=== PATIENT | female | born 1975 | race Caucasian/White ===

== ENCOUNTER 2017-08-14 13:24 | Emergency (ER) | payer BC, MEDICAID ==
[2017-08-14 13:31] VITALS: BP 119/77
[2017-08-14] MEDS ORDERED: LIDOCAINE TOPICAL 4% 50 ML BOTTLE MM STA (13:33)
--- NOTE | 2017-08-14 13:36 | ED Physician Documentation ---
History of Present Illness - Stated complaint Stated Complaint: R EAR PAIN - Chief complaint Chief Complaint: Heent - Additonal information Additional information: hx from pt hx ear infections recent congestion R ear pain few days worse today fever denies preg Review of Systems Constitutional: reports: Fever Ears: reports: Ear pain Nose: reports: Congestion : denies: Now EGA PD PAST MEDICAL HISTORY - Present Medications Home Medications: Ambulatory Orders Medication Instructions Recorded Confirmed Neomycin/Polymyx/Hc Otic Drops 4 drops OT QID #1 bottle 08/14/17 [Cortisporin Ear Susp] - Allergies Allergies/Adverse Reactions: Allergies Allergy/AdvReac Type Severity Reaction Status Date / Time hydrocodone Allergy Unknown Verified 08/14/17 13:31 PD ED PE NORMAL - Vitals Vital signs reviewed: Yes - HEENT HEENT: Moist mucous membranes, Pharynx benign. No: Ears normal (R AOE - swollen tender red canal, visualized TM dull lewis and retracted, posterior auricular adenopathy, no mastoid erythema swelling or TTP) - Neck Neck: Supple, no meningeal sign - Cardiac Cardiac: RRR - Respiratory Respiratory: No respiratory distress, Clear bilaterally Results - Vitals Vitals: Vital Signs - 24 hr 08/14/17 13:29 Temperature 36.4 C L Heart Rate 79 Respiratory 20 Rate Blood Pressure 119/77 O2 Saturation 100 Oxygen O2 Source Room air Departure - Departure Disposition: 01 Home, Self Care Clinical Impression: Otitis externa Qualifiers: Otitis externa type: unspecified type Chronicity: acute Laterality: right Qualified Code(s): H60.501 - Unspecified acute noninfective otitis externa, right ear Condition: Good Instructions: ED Otitis Externa Prescriptions: Neomycin/Polymyx/Hc Otic Drops [Cortisporin Ear Susp] 4 drops OT QID #1 bottle Comments: Motrin and tylenol for pain Follow up with your PMD for a recheck next week
[2017-08-14] MEDS ORDERED: LIDOCAINE TOPICAL 4% 50 ML BOTTLE ONE (13:43)
== END 2017-08-14 13:48 | disposition home or self-care (01) ==
LOC: ED 13:24
DX: H60.501 Unspecified acute noninfective otitis externa, right ear (principal)
CPT/HCPCS: 99283

== ENCOUNTER 2018-03-26 05:13 | Emergency (ER) | payer BC ==
[2018-03-26 05:24] VITALS: BP 120/88
[2018-03-26 05:40] LABS: BILIRUBIN,URINE NEGATIVE (NEGATIVE); GLUCOSE, URINE (UA) NEGATIVE (NEGATIVE); KETONES,URINE (UA) NEGATIVE (NEGATIVE); LEUKOCYTE ESTERASE, URINE MODERATE (NEGATIVE); NITRITE,URINE POSITIVE (NEGATIVE); OCCULT BLOOD,URINE MODERATE (NEGATIVE); PROTEIN,URINE 30 mg/dL (NEGATIVE); UROBILINOGEN,URINE 0.2 (NORMAL) E.U./dL (NORMAL)
[2018-03-26 05:42] LABS: CLARITY,URINE HAZY (CLEAR); HCG UR QUAL NEGATIVE
[2018-03-26 05:47] LABS: BACTERIA,URINE Moderate /HPF (None Seen); SQUAMOUS EPITHELIAL CELL,UR FEW Squamous (<= Few)
--- NOTE | 2018-03-26 05:50 | ED Physician Documentation ---
PD HPI FEMALE - Stated complaint Stated Complaint: FEMALE - Chief complaint Chief Complaint: UTI - History obtained from History obtained from: Patient - History of Present Illness Timing - onset: Yesterday Timing - details: Abrupt onset Pain level max: 4 Associated symptoms: Back pain, Pelvic pain, Dysuria, Urinary frequency. No: Fever Contributing factors: No: Similar symptoms before: Diagnosis (similar symptoms 3 weeks ago, dx. 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 - Present Medications Home Medications: Ambulatory Orders Medication Instructions Recorded Confirmed Ciprofloxacin HCl [Cipro] 500 mg PO BID #13 tablet 03/26/18 Phenazopyridine HCl [Pyridium] 200 mg PO TID 3 Days #9 tablet 03/26/18 - Allergies Allergies/Adverse Reactions: Allergies Allergy/AdvReac Type Severity Reaction Status Date / Time codeine Allergy Hives Verified 03/26/18 05:25 hydrocodone Allergy Unknown Verified 08/14/17 13:31 - Social History Does the pt smoke?: No Smoking Status: Never smoker Does the pt drink ETOH?: Yes Does the pt have substance abuse?: No - Immunizations Immunizations are current?: No Immunizations: TDAP >10years/unknown, Other immun current PD ED PE NORMAL - Vitals Vital signs reviewed: Yes - General General: Alert and oriented X 3, No acute distress, Well developed/nourished - Abdomen Abdomen: Soft, Non tender - Back Back: No CVA TTP - Derm Derm: No rash Results - Vitals Vitals: Oxygen O2 Source Room air - Labs Labs: Microbiology 03/26/18 05:30 Urine Culture - Preliminary Urine,Clean Catch Escherichia Coli Laboratory Tests 03/26/18 03/26/18 05:30 05:30 Urine Color YELLOW Urine Clarity HAZY Urine pH 6.0 Ur Specific [place] >=1.030 H >1.030 Urine Protein 30 H Urine Glucose (UA) NEGATIVE Urine Ketones NEGATIVE Urine Occult Blood MODERATE H Urine Nitrite POSITIVE H Urine Bilirubin NEGATIVE Urine Urobilinogen 0.2 (NORMAL) Ur Leukocyte Esterase MODERATE H Urine RBC 6-10 H Urine WBC >25 H Ur Squamous Epith Cells FEW Squamous Urine Bacteria Moderate H Ur Microscopic Review INDICATED Urine Culture Comments INDICATED Urine HCG, Qual NEGATIVE PD MEDICAL DECISION MAKING - ED course Complexity details: reviewed results, re-evaluated patient, considered differential, d/w patient - Sepsis Event Vital Signs: Oxygen O2 Source Room air Departure - Departure Disposition: 01 Home, Self Care Clinical Impression: Urinary tract infection Condition: Good Instructions: ED UTI Cystitis Female Prescriptions: Ciprofloxacin HCl [Cipro] 500 mg PO BID #13 tablet Phenazopyridine HCl [Pyridium] 200 mg PO TID 3 Days #9 tablet Forms: Activity restrictions Discharge Date/Time: 03/26/18 06:31
[2018-03-26] MEDS ORDERED: CIPROFLOXACIN 250 MG TABLET PO STA (06:18)
[2018-03-26] MEDS ORDERED: PHENAZOPYRIDINE 100 MG TABLET PO STA (06:19)
== END 2018-03-26 06:31 | disposition home or self-care (01) ==
LOC: ED 05:13
DX: N39.0 Urinary tract infection, site not specified (principal)
CPT/HCPCS: 81001; 81025; 87086; 87181; 99283; A9270; 81003

== ENCOUNTER 2019-11-14 21:50 | Emergency (ER) | payer BC, MEDICAID ==
[2019-11-14 21:56] VITALS: BP 123/85
[2019-11-14] MEDS ORDERED: MORPHINE 2 MG/ML CARPUJECT IM STA (22:20)
[2019-11-14] MEDS ORDERED: KETOROLAC 30 MG/ML VIAL IM STA (22:20)
--- NOTE | 2019-11-14 22:25 | ED Physician Documentation ---
History of Present Illness - Stated complaint Stated Complaint: BACK PX - Chief complaint Chief Complaint: Back Pain - History obtained from History obtained from: Patient - History of Present Illness Pain level max: 10 Pain level now: 10 Quality: tightness; dull pain Radiates to: thoracic mid back and right shoulder Improved by: rest Worsened by: movements - Additonal information Additional information: 44-year-old female with history of chronic back pain for over 16 years, who presented to the emergency department for evaluation because of acute on chronic low back pain for the last 3 days. Patient reported that he used to work for [employer] and she was lifting over 50 pounds of objects. On a regular basis and as a result, developed lower back pain. She currently works at [employer] and she does notCarry heavy objects at work. She denies any numbness or tingling to her lower extremities. She reports that her low back will seize up and the pain will radiate up to the mid back and to her right posterior shoulde r. She denies any fever or chills. She denies IV drug use. She denies saddle anesthesia. She denies urinary frequency, difficulty with urination or fecal incontinence. Review of Systems Constitutional: denies: Fever, Chills Eyes: denies: Photophobia, Discharge Ears: denies: Tinnitus/ringing Nose: denies: Rhinorrhea / runny nose Cardiac: denies: Chest pain / pressure Respiratory: denies: Dyspnea GI: denies: Abdominal Pain : denies: Dysuria, Frequency, Hesitancy, Unable to Void Skin: denies: Rash Musculoskeletal: reports: Back pain. 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 - Present Medications Home Medications: Ambulatory Orders Medication Instructions Recorded Confirmed Ciprofloxacin HCl [Cipro] 500 mg PO BID #13 tablet 03/26/18 Phenazopyridine HCl [Pyridium] 200 mg PO TID 3 Days #9 tablet 03/26/18 Cyclobenzaprine [Flexeril] 10 mg PO TID PRN #15 tablet 11/14/19 - Allergies Allergies/Adverse Reactions: Allergies Allergy/AdvReac Type Severity Reaction Status Date / Time codeine Allergy Hives Verified 11/14/19 21:56 hydrocodone Allergy Unknown Verified 11/14/19 21:56 - Social History Does the pt smoke?: No Smoking Status: Never smoker Does the pt drink ETOH?: Yes Does the pt have substance abuse?: No - Immunizations Immunizations are current?: No Immunizations: TDAP >10years/unknown, Other immun current PD ED PE NORMAL - Vitals Vital signs reviewed: Yes - General General: Alert and oriented X 3, No acute distress, Other (Uncomfortable with mom movements but no acute distress) - HEENT HEENT: Atraumatic, EOMI - Neck Neck: Supple, no meningeal sign - Cardiac Cardiac: RRR. No: No murmur - Respiratory Respiratory: No respiratory distress - Back Back: No CVA TTP, Other (Paralumbar tenderness to palpation. No step-off. 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 Patient remained neurologically intact. She was afebrile. She denies history of IV drug use. She denies symptoms of saddle anesthesia or sciatica. At this time, I do not suspect cauda equina, cord compression. There was no history of trauma to suggest an acute fracture. She was treated with IM Toradol and morphine with improvement of her pain. Patient was prescribed Flexeril for symptomatic relief. Outpatient follow-up with her primary care doctor in 3 to 5 days was recommended. Strict return instructions were given. She expressed verbal understanding. She was discharged in stable condition. Departure - Departure Disposition: 01 Home, Self Care Clinical Impression: Chronic low back pain without sciatica Condition: Stable Instructions: ED Back Care Tips, ED Neck Back Pain General Follow-Up: [facility] [Provider Group] - Within 1 week Prescriptions: Cyclobenzaprine [Flexeril] 10 mg PO TID PRN #15 tablet PRN Reason: Spasms Comments: PLEASE FOLLOW UP WITH A REGULAR DOCTOR IN 3-5 DAYS FOR YOUR ONGOING BACK PAIN. PLEASE RETURN TO THE EMERGENCY DEPARTMENT IF YOU EXPERIENCE URINARY OR FECAL INCONTINENCE OR DIFFICULTY WITH URINATION OR FEVER OF 100.4 OR ANY NEW OR CONCERNING SYMPTOMS. Discharge Date/Time: 11/14/19 22:44
== END 2019-11-14 22:44 | disposition home or self-care (01) ==
LOC: ED 21:50
DX: G89.29 Other chronic pain (principal); M54.5 Low back pain
CPT/HCPCS: 96372; 99283; 99285

== ENCOUNTER 2021-02-04 21:56 | Emergency (ER) | payer MEDICAID ==
[2021-02-04] MEDS ORDERED: CYCLOBENZAPRINE 10 MG TABLET PO STA (22:45)
[2021-02-04] MEDS ORDERED: KETOROLAC 60 MG/2 ML VIAL IM STA (22:45)
[2021-02-04] MEDS ORDERED: DEXAMETHASONE 10 MG/ML VIAL IM STA (22:45)
--- NOTE | 2021-02-04 22:53 | ED Physician Documentation ---
History of Present Illness - Stated complaint Stated Complaint: LOWER BACK PX, R LEG PX - Chief complaint Chief Complaint: Back Pain - History obtained from History obtained from: Patient - Additonal information Additional information: Patient comes emergency department chief complaint of spasming low back pain and bilateral buttock pain that shoots down right leg for the last 3 days. The patient has a history of prior back problems, and has been treated for back pain before. She denies a distinct injury, but states she has had to do some heavy lifting at work recently and thinks that this probably aggravated her back. Prior to her current job at [employer], patient works for [employer] for several years, and had to regularly lift 50 pounds or more throughout her work days. She states this seemed to really worsen her back issues. No distinct injury recently. No loss of bowel or bladder function. No numbness or tingling in her lower extremities. No weakness. No fever or chills. No other complaints at this time. Review of Systems Ten Systems: 10 systems reviewed and negative Constitutional: reports: Reviewed and negative Eyes: reports: Reviewed and negative Ears: reports: Reviewed and negative Nose: reports: Reviewed and negative Throat: reports: Reviewed and negative Cardiac: reports: Reviewed and negative Respiratory: reports: Reviewed and negative GI: reports: Reviewed and negative : reports: Reviewed and negative Skin: reports: Reviewed and negative Musculoskeletal: reports: Back pain, Extremity pain Neurologic: reports: Reviewed and negative Psychiatric: reports: Reviewed and negative Endocrine: reports: Reviewed and negative Immunocompromised: reports: Reviewed and negative PD PAST MEDICAL HISTORY - Past Medical History Cardiovascular: None Respiratory: None GI: None 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 NURSE: 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 : None Musculoskeletal: Chronic back pain Derm: None - Past Surgical History 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 - Present Medications Home Medications: Ambulatory Orders Medication Instructions Recorded Confirmed Acyclovir 400 mg PO 5XD PRN 02/04/21 02/04/21 Cyclobenzaprine [Flexeril] 10 mg PO TID PRN #20 tablet 02/04/21 predniSONE [Deltasone] 60 mg PO DAILY 5 Days #15 tablet 02/04/21 - Allergies Allergies/Adverse Reactions: Allergies Allergy/AdvReac Type Severity Reaction Status Date / Time codeine Allergy Hives Verified 02/04/21 22:04 hydrocodone Allergy Unknown Verified 02/04/21 22:04 - Social History Does the pt smoke?: No Smoking Status: Never smoker Does the pt drink ETOH?: Yes Does the pt have substance abuse?: No - Immunizations Immunizations are current?: No Immunizations: TDAP >10years/unknown, Other immun current PD ED PE NORMAL - Vitals Vital signs reviewed: Yes - General General: Alert and oriented X 3, No acute distress - HEENT HEENT: Atraumatic, PERRL - Neck Neck: Supple, no meningeal sign - Cardiac Cardiac: RRR, No murmur, Strong equal pulses - Respiratory Respiratory: No respiratory distress, Clear bilaterally - Abdomen Abdomen: Soft, Non tender, Non distended - Back Back: No spinal TTP, Other (Tenderness palpation across the inferior lumbar area bilaterally and into bilateral sacroiliac joint areas.) - Derm Derm: Normal color, Warm and dry, No rash - Extremities Extremities: No deformity, No edema, No calf tenderness / cord - Neuro Neuro: Alert and oriented X 3, 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 The patient was treated symptomatically in the emergency department with IM Toradol and Decadron, as well as a dose of Flexeril. She did state that Flexeril has worked before when she has had flareups of her back, and I did review her records which did not demonstrate frequent visits to the emergency department. The patient was given prescriptions for prednisone and for Flexeril, and I have advised patient that she may also use Tylenol and ibuprofen, as well as ice and heat, as needed. I have given her a work note for tomorrow. We have discussed follow-up and the usual indications for return. Departure - Departure Disposition: 01 Home, Self Care Clinical Impression: Back pain Qualifiers: Back pain location: low back pain Chronicity: acute Back pain laterality: bilateral Sciatica presence: with sciatica Sciatica laterality: sciatica of right side Qualified Code(s): M54.41 - Lumbago with sciatica, right side Condition: Stable Instructions: ED Spasm Back No Trauma, ED Sciatica Prescriptions: predniSONE [Deltasone] 60 mg PO DAILY 5 Days #15 tablet Cyclobenzaprine [Flexeril] 10 mg PO TID PRN #20 tablet PRN Reason: Spasms Comments: You have been given a sedating medication in the emergency department tonight. Please do not drive for the next 8 hours. Forms: Activity restrictions Discharge Date/Time: 02/04/21 23:14
[2021-02-04 23:14] VITALS: BP 128/64
== END 2021-02-04 23:14 | disposition home or self-care (01) ==
LOC: ED 21:56
DX: M54.41 Lumbago with sciatica, right side (principal)
CPT/HCPCS: 96372; 99283; 99284; A9270

== ENCOUNTER 2022-02-07 22:36 | Emergency (ER) | payer MEDICAID ==
[2022-02-07 23:27] LABS: BILIRUBIN,URINE NEGATIVE (NEGATIVE); GLUCOSE, URINE (UA) NEGATIVE (NEGATIVE); KETONES,URINE (UA) NEGATIVE (NEGATIVE); LEUKOCYTE ESTERASE, URINE SMALL (NEGATIVE); NITRITE,URINE NEGATIVE (NEGATIVE); OCCULT BLOOD,URINE MODERATE (NEGATIVE); PROTEIN,URINE TRACE mg/dL (NEGATIVE); UROBILINOGEN,URINE 0.2 (NORMAL) E.U./dL (NORMAL)
[2022-02-07] MEDS ORDERED: oxyCODONE 5 MG TABLET PO STA (23:29)
--- NOTE | 2022-02-07 23:29 | ED Physician Documentation ---
PD HPI ABD PAIN - Stated complaint Stated Complaint: ABD PX - Chief complaint Chief Complaint: Abd Pain - Additional information Additional information: Patient is 46-year-old female presenting to the emergency department with chief complaint of abdominal pain with associated dysuria and urinary frequency. Reports began having frequent urinations that has become subsequently more uncomfortable over the course of the day. Also reports that she has developed suprapubic discomfort. States that this happens frequently associated with her urinary tract infections. Denies any fever, nausea, vomiting, diarrhea or constipation associated with her symptoms. Does express concern that she could have a sexually transmitted infection. Endorses for vaginal discharge but denies ulcerations or sores. Review of Systems Ten Systems: 10 systems reviewed and negative Constitutional: denies: Fever Eyes: denies: Loss of vision Ears: denies: Loss of hearing Nose: denies: Rhinorrhea / runny nose Throat: denies: Dental pain / toothache Cardiac: denies: Chest pain / pressure Respiratory: denies: Dyspnea GI: reports: Abdominal Pain. 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: Yes Does the pt have substance abuse?: No - Immunizations Immunizations are current?: No Immunizations: TDAP >10years/unknown, Other immun current - POLST Patient has POLST: No PD ED PE NORMAL - General General: Alert and oriented X 3 - HEENT HEENT: Atraumatic - Neck Neck: Supple, no meningeal sign - Cardiac Cardiac: RRR - Respiratory Respiratory: No respiratory distress - Abdomen Abdomen: Normal bowel sounds, Other (Suprapubic tenderness to palpation) - Female Female : Deferred - Rectal Rectal: Deferred - Back Back: No CVA TTP, No spinal TTP - Derm Derm: Normal color - Extremities Extremities: No deformity - Psych Psych: Normal mood Results - Vitals Vitals: Vital Signs - 24 hr 02/07/22 02/07/22 02/08/22 22:44 23:21 02:02 Temperature 36.3 C L Heart Rate 75 Respiratory 14 12 Rate Blood Pressure 115/74 O2 Saturation 100 98 02/08/22 02:31 Temperature 36.1 C L Heart Rate 80 Respiratory 14 Rate Blood Pressure 111/84 H O2 Saturation 97 Oxygen O2 Source Room air - Labs Labs: Laboratory Tests 02/07/22 02/07/22 02/07/22 23:24 23:42 23:42 WBC 7.9 RBC 4.03 L Hgb 13.0 Hct 38.3 MCV 95.0 MCH 32.3 H MCHC 33.9 RDW 12.0 Plt Count 237 MPV 9.7 Neut # (Auto) 5.7 Lymph # (Auto) 1.6 [place] # (Auto) 0.5 Eos # (Auto) 0.1 Baso # (Auto) 0.0 Absolute Nucleated RBC 0.00 Nucleated RBC % 0.0 Sodium 138 Potassium 3.7 Chloride 102 Carbon Dioxide 27 Anion Gap 9.0 BUN 17 Creatinine 0.6 Estimated GFR (MDRD) 108 Glucose 98 Calcium 9.5 Total Bilirubin 0.5 AST 25 ALT 18 Alkaline Phosphatase 61 Total Protein 7.7 Albumin 4.6 Globulin 3.1 Albumin/Globulin Ratio 1.5 Lipase 38 Urine Color YELLOW Urine Clarity CLEAR Urine pH 6.0 Ur Specific [place] 1.010 Urine Protein TRACE Urine Glucose (UA) NEGATIVE Urine Ketones NEGATIVE Urine Occult Blood MODERATE H Urine Nitrite NEGATIVE Urine Bilirubin NEGATIVE Urine Urobilinogen 0.2 (NORMAL) Ur Leukocyte Esterase SMALL H Urine RBC 0-5 Urine WBC 6-10 H Ur Squamous Epith Cells RARE Squamous Urine Bacteria Moderate H Ur Microscopic Review INDICATED Urine Culture Comments INDICATED Urine HCG, Qual NEGATIVE PD MEDICAL DECISION MAKING - ED course Complexity details: d/w patient ED course: Patient is 46-year-old female presenting to the emergency department with frequent urination and vaginal discomfort. Afebrile, hemodynamically stable on arrival to the emergency department. Some mild suprapubic tenderness to palpation. Patient did express concern that she may have a sexually transmitted infection. Was offered pelvic exam however she elected to self swab. Swab was sent to the lab and is pending at this time. There was a significant delay in processing the swab as lab was unable to perform wet mount in a timely fashion and patient reported that she wished to leave the emergency department before its completion.Patient was encouraged to abstain from sexual contact for the next 7 days. She was encouraged to follow-up carefully with her primary care doctor for review of her results.. Urine analysis did have some indications of infection including positive bacteria. Patient received dose Rocephin and will be discharged on course doxycycline here in the emergency department. Was encouraged to follow-up carefully with primary care doctor or return to the emergency department for new or worsening symptoms. Departure - Departure Disposition: 01 Home, Self Care Clinical Impression: Dysuria, Vaginal discharge Instructions: ED Dysuria Uncertain Cause Prescriptions: Doxycycline Hyclate 100 mg PO BID #20 tab.sr Comments: Thank you for allowing us to care for you this evening at [facility]. Thank again for being patient with us this evening we have been experiencing an extraordinarily high patient volume. Your urine did show some indications of infection and I like you to begin a course of oral antibiotics. You received your first doses here in the emergency department. I have also sent your self swab for gonorrhea, chlamydia as well as further testing for trichomonas, bacterial vaginosis or yeast. At this time these tests are pending. I will be discharging her on a course of antibiotics that will cover for most typical sexually transmitted pathogens however it is very important that you follow-up with your primary care doctor in the next few days in order to review these results. Please abstain from sexual activity for at least the next 7 days. If anytime you develop any new or worsening symptoms please not hesitate to return to the emergency department. Discharge Date/Time: 02/08/22 02:31
[2022-02-07 23:39] LABS: BACTERIA,URINE Moderate /HPF (None Seen); CLARITY,URINE CLEAR (CLEAR); HCG UR QUAL NEGATIVE; RBC,URINE 0-5 /HPF (0-5); SQUAMOUS EPITHELIAL CELL,UR RARE Squamous (<= Few)
[2022-02-07 23:53] LABS: BASOPHILS % (AUTO) 0.4 %; EOSINOPHILS # (AUTO) 0.1 10^3/uL (0.0-0.7); EOSINOPHILS % (AUTO) 0.6 %; HCT - HEMATOCRIT 38.3 % (37.0-47.0); LYMPHOCYTES # (AUTO) 1.6 10^3/uL (1.5-3.5); LYMPHOCYTES % (AUTO) 20.5 %; MEAN CORPUSCULAR HEMOGLOBIN 32.3 pg (27.0-31.0); MEAN CORPUSCULAR HGB CONC 33.9 g/dL (32.0-36.0); MEAN PLATELET VOLUME 9.7 fL (7.9-10.8); MONOCYTES # (AUTO) 0.5 10^3/uL (0.0-1.0); MONOCYTES % (AUTO) 6.2 %; NEUTROPHILS # (AUTO) 5.7 10^3/uL (1.5-6.6); NEUTROPHILS % (AUTO) 72.2 %; PLT - PLATELET COUNT 237 10^3/uL (130-450); RED BLOOD COUNT 4.03 10^6/uL (4.20-5.40); WHITE BLOOD COUNT 7.9 x10^3/uL (4.8-10.8)
[2022-02-08 00:05] LABS: ALBUMIN 4.6 g/dL (3.2-5.5); ALBUMIN/GLOBULIN RATIO 1.5 (1.0-2.2); BILIRUBIN,TOTAL 0.5 mg/dL (0.2-1.0); CALCIUM 9.5 mg/dL (8.5-10.3); CREATININE 0.6 mg/dL (0.4-1.0); POTASSIUM 3.7 mmol/L (3.5-5.0); TOTAL PROTEIN 7.7 g/dL (6.7-8.2)
[2022-02-08] MEDS ORDERED: cefTRIAXone 500 MG VIAL IM STA (02:11)
[2022-02-08] MEDS ORDERED: DOXYCYCLINE 100 MG TABLET PO STA (02:11)
[2022-02-08] MEDS ORDERED: LIDOCAINE 1% 2 ML VIAL MC ONE (02:11)
[2022-02-08 02:38] VITALS: BP 111/84
[2022-02-08 03:56] LABS: BACTERIAL VAGINOSIS DNA NEGATIVE (NEGATIVE); CANDIDA GLABRATA DNA NEGATIVE (NEGATIVE); CANDIDA GROUP DNA NEGATIVE (NEGATIVE); CANDIDA KRUSEI DNA NEGATIVE (NEGATIVE); TRICHOMONAS VAGINALIS DNA NEGATIVE (NEGATIVE)
[2022-02-08 04:53] LABS: CHLAMYDIA TRACHOMATIS DNA NEGATIVE (NEGATIVE); NEISSERIA GONORRHOEAE DNA NEGATIVE (NEGATIVE)
== END 2022-02-08 02:31 | disposition home or self-care (01) ==
LOC: ED 22:36
DX: R30.0 Dysuria (principal); N89.8 Other specified noninflammatory disorders of vagina
CPT/HCPCS: 36415; 80053; 81001; 81025; 81514; 83690; 85025; 87077; 87086; 87181; 87491; 87591; 96372; 99282; 99283; A9270; 81003; 87210; 87661

== ENCOUNTER 2022-06-14 09:51 | Emergency (ER) | payer MEDICAID ==
[2022-06-14 09:59] VITALS: BP 111/74
--- NOTE | 2022-06-14 10:44 | XRAY Report ---
PROCEDURE: Finger(s) RT INDICATIONS: Trauma TECHNIQUE: AP hand, 3 views of the fifth finger(s) acquired. COMPARISON: None FINDINGS: Bones: There is subluxation at the fifth DIP joint. Punctate calcification is noted adjacent to the j oint space. No suspicious bony lesions. Soft tissues: No suspicious soft tissue calcifications. IMPRESSION: Fifth DIP joint subluxation. Punctate calcification is noted adjacent to the joint space which could represent avulsion injury. Reviewed by: Viv Bruner MD on 06/14/2022 10:43 AM PDT Approved by: Viv Bruner MD on 06/14/2022 10:43 AM PDT Station ID: [id number]
--- OUTSIDE RECORDS SUMMARY | 2022-06-14 10:59 | EXTERNAL MEDICAL SUMMARY RPT | Continuity of Care Document ---
:1975 Author Organization [place] Address [address] [id number] Phone Allergies No information. Encounters No information. Functional Status No information. Immunizations No information. Medications date description facility [id number] Acyclovir 400 MG Oral [facility] Problems No information. Procedures date description facility [id number] [facility] Results/Labs test date author facility value unit interpret ation Result panel 1 (unknown) (no (unknown) (unknown) (no value) (units (unk nown) date) unknown) (unknown) (no (unknown) (unknown) [place], [place] (units ( unknown) date) [id number] unknown) (unknown) (no (unknown) (unknown) Diabetes mellitus (units (unknown) date) unknown) (unknown) (no (unknown) (unknown) Draft (units (unkno wn) date) unknown) (unknown) (no (unknown) (unknown) [facility] unknown) (unknown) (no (unknown) (unknown) Gynecology Visit (units (unknown) date) unknown) (unknown) (no (unknown) (unknown) High cholesterol (units (unknown) date) unknown) (unknown) (no (unknown) (unknown) Hypertension (units (u nknown) date) unknown) (unknown) (no (unknown) (unknown) RASH (units (unkno wn) date) unknown) (unknown) (no (unknown) (unknown) Rash (units (unkno wn) date) unknown) (unknown) (no (unknown) (unknown) Swelling of (units (un known) date) Lip/Tongue/Throat unknown) (unknown) (no (unknown) (unknown) (no value) (units (unk nown) date) unknown) (unknown) (no (unknown) (unknown) [id number] (units (unkn own) date) unknown) (unknown) (no (unknown) (unknown) 04/01/22 (units (unkno wn) date) unknown) (unknown) (no (unknown) (unknown) 04/01/22] (units (unkn own) date) unknown) (unknown) (no (unknown) (unknown) Age/Sex: 46 / F (units (unknown) date) Date of Service: unknown) (unknown) (no (unknown) (unknown) Allergies (units (unkn own) date) unknown) (unknown) (no (unknown) (unknown) Anesthesia (units (unk nown) date) unknown) (unknown) (no (unknown) (unknown) Anxiety (units (unkno wn) date) unknown) (unknown) (no (unknown) (unknown) Asthma (units (unkno wn) date) unknown) (unknown) (no (unknown) (unknown) Attending Dr: (units ( unknown) date) Phuong Toledo MD unknown) (unknown) (no (unknown) (unknown) Confirmed (units (unkn own) date) 04/01/22] unknown) (unknown) (no (unknown) (unknown) : 1975 (units (unknown) date) Acct:[id number] unknown) (unknown) (no (unknown) (unknown) Dept at (units (unkno wn) date) . unknown) (unknown) (no (unknown) (unknown) Documented By: (units (unknown) date) Phuong Toledo MD unknown) 04/01/22 1101 (unknown) (no (unknown) (unknown) Family History (units (unknown) date) (Updated 02/25/21 unknown) @ 18:59 by Orin Jacques) (unknown) (no (unknown) (unknown) Father Age: 78 (units (unknown) date) Heart disease unknown) (unknown) (no (unknown) (unknown) Foot pain (units (unkn own) date) unknown) (unknown) (no (unknown) (unknown) Grandfather (units (un known) date) Stroke unknown) (unknown) (no (unknown) (unknown) Herpes (units (unkno wn) date) unknown) (unknown) (no (unknown) (unknown) Intake (units (unkno wn) date) unknown) (unknown) (no (unknown) (unknown) Intake Note: (units (u nknown) date) unknown) (unknown) (no (unknown) (unknown) Intake performed (units (unknown) date) by: Corey Oneal unknown) (unknown) (no (unknown) (unknown) Intake- Clincial (units (unknown) date) Staff unknown) (unknown) (no (unknown) (unknown) Last Menstural (units (unknown) date) Cycle + Details unknown) (unknown) (no (unknown) (unknown) Last pap- 02/06/21 (units (unknown) date) NIL, last 4 NIL unknown) (unknown) (no (unknown) (unknown) Loc: [facility] (units (unkno wn) date) unknown) (unknown) (no (unknown) (unknown) Mammo- (units (unkno wn) date) unknown) (unknown) (no (unknown) (unknown) Medical History (units (unknown) date) (Updated 06/06/21 unknown) @ 16:18 by Precious Covarrubias MD) (unknown) (no (unknown) (unknown) Medications (units (un known) date) unknown) (unknown) (no (unknown) (unknown) Migraines (units (unkn own) date) unknown) (unknown) (no (unknown) (unknown) Mother Age: 71 (units (unknown) date) Hypertension unknown) (unknown) (no (unknown) (unknown) Other Menstrual (units (unknown) date) Period: unknown) Postmenopausal (unknown) (no (unknown) (unknown) PFSH (units (unkno wn) date) unknown) (unknown) (no (unknown) (unknown) Patient: (units (unkno wn) date) Bettie Christian unknown) MR#: M (unknown) (no (unknown) (unknown) Previous (units (unknown) date) section unknown) (unknown) (no (unknown) (unknown) Pt here for (units (un known) date) preventative exam unknown) (unknown) (no (unknown) (unknown) Reason For Visit (units (unknown) date) unknown) (unknown) (no (unknown) (unknown) Signed By: (units (unk nown) date) unknown) (unknown) (no (unknown) (unknown) Smoking Status: (units (unknown) date) Current some day unknown) smoker (unknown) (no (unknown) (unknown) Status post tubal (units (unknown) date) ligation unknown) (11/18/14) (unknown) (no (unknown) (unknown) Surgical History (units (unknown) date) (Updated 02/25/21 unknown) @ 18:57 by Orin Jacques) (unknown) (no (unknown) (unknown) This note may (units ( unknown) date) have been all or unknown) partially generated using voice recognition (unknown) (no (unknown) (unknown) Tobacco + (units (unkn own) date) Substance Use unknown) (unknown) (no (unknown) (unknown) Tobacco Status (units (unknown) date) unknown) (unknown) (no (unknown) (unknown) Visit Reasons: (units (unknown) date) Prev Exam unknown) (unknown) (no (unknown) (unknown) acyclovir 400 mg (units (unknown) date) tablet 400 mg PO unknown) 5XD HSV #25 tabs 03/20/22 [Rx Confirmed (unknown) (no (unknown) (unknown) banana Allergy (units (unknown) date) (Severe, Verified unknown) 04/01/22 11:02) (unknown) (no (unknown) (unknown) codeine [CODEINE] (units (unknown) date) Allergy unknown) (Intermediate, Verified 04/01/22 11:02) (unknown) (no (unknown) (unknown) cyclobenzaprine (units (unknown) date) 10 mg tablet 10 mg unknown) PO BEDTIME 02/06/21 [History Confirmed (unknown) (no (unknown) (unknown) estradiol-norethi (units (unknown) date) ndrone acet 0.5 unknown) mg-0.1 mg tablet 1 tab PO DAILY Menopause (unknown) (no (unknown) (unknown) grapefruit (units (unk nown) date) Allergy (Severe, unknown) Verified 04/01/22 11:02) (unknown) (no (unknown) (unknown) have occurred. If (units (unknown) date) there are any unknown) questions, please contact the Medical Records (unknown) (no (unknown) (unknown) hydrocodone (units (un known) date) [HYDROCODONE] unknown) Allergy (Severe, Verified 04/01/22 11:02) (unknown) (no (unknown) (unknown) loratadine 10 mg (units (unknown) date) capsule (Claritin unknown) Liqui-Gel) 10 mg PO QDAY ##30 10/19/17 [Rx (unknown) (no (unknown) (unknown) may occur. (units (unk nown) date) Occasional unknown) wrong-word or 'sound-alike' substitutions may have (unknown) (no (unknown) (unknown) occurred due to (units (unknown) date) the inherent unknown) limitations of voice recognition software. Please (unknown) (no (unknown) (unknown) prednisone 20 mg (units (unknown) date) tablet 20 mg PO unknown) DAILY 02/06/21 [History Confirmed 04/01/22] (unknown) (no (unknown) (unknown) read the note (units ( unknown) date) carefully and unknown) recognize, using context, where these substitutions (unknown) (no (unknown) (unknown) shellfish derived (units (unknown) date) Allergy (Severe, unknown) Verified 04/01/22 11:02) (unknown) (no (unknown) (unknown) software. 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 (unknown) (no (unknown) (unknown) symptoms #28 tabs (units (unknown) date) 06/06/21 [Rx unknown) Confirmed 04/01/22] (unknown) (no (unknown) (unknown) tramadol 50 mg (units (unknown) date) tablet (Ultram) 50 unknown) mg PO Q8H PRN pain #7 tabs 01/14/20 [Rx Result panel 2 (unknown) (no (unknown) (unknown) (no value) (units (unk nown) date) unknown) (unknown) (no (unknown) (unknown) (no value) (units (unk nown) date) unknown) (unknown) (no (unknown) (unknown) 04/01/22 (units (unkno wn) date) unknown) (unknown) (no (unknown) (unknown) 11:10 (units (unkno wn) date) unknown) (unknown) (no (unknown) (unknown) [place], [place] (units ( unknown) date) [id number] unknown) (unknown) (no (unknown) (unknown) Diabetes mellitus (units (unknown) date) unknown) (unknown) (no (unknown) (unknown) Draft (units (unkno wn) date) unknown) (unknown) (no (unknown) (unknown) [facility]) (unknown) (no (unknown) (unknown) Gynecology Visit (units (unknown) date) unknown) (unknown) (no (unknown) (unknown) High cholesterol (units (unknown) date) unknown) (unknown) (no (unknown) (unknown) Hypertension (units (u nknown) date) unknown) (unknown) (no (unknown) (unknown) RASH (units (unkno wn) date) unknown) (unknown) (no (unknown) (unknown) Rash (units (unkno wn) date) unknown) (unknown) (no (unknown) (unknown) Swelling of (units (un known) date) Lip/Tongue/Throat unknown) (unknown) (no (unknown) (unknown) (no value) (units (unk nown) date) unknown) (unknown) (no (unknown) (unknown) [id number] (units (unkn own) date) unknown) (unknown) (no (unknown) (unknown) 04/01/22 (units (unkno wn) date) unknown) (unknown) (no (unknown) (unknown) 04/01/22] (units (unkn own) date) unknown) (unknown) (no (unknown) (unknown) Age/Sex: 46 / F (units (unknown) date) Date of Service: unknown) (unknown) (no (unknown) (unknown) Allergies (units (unkn own) date) unknown) (unknown) (no (unknown) (unknown) Anesthesia (units (unk nown) date) unknown) (unknown) (no (unknown) (unknown) Anxiety (units (unkno wn) date) unknown) (unknown) (no (unknown) (unknown) Asthma (units (unkno wn) date) unknown) (unknown) (no (unknown) (unknown) Attending Dr: (units ( unknown) date) Phuong Toledo MD unknown) (unknown) (no (unknown) (unknown) BP 94/62 (units (unkno wn) date) unknown) (unknown) (no (unknown) (unknown) Blood Pressure (units (unknown) date) Location Rt unknown) brachial (unknown) (no (unknown) (unknown) Confirmed (units (unkn own) date) 04/01/22] unknown) (unknown) (no (unknown) (unknown) : 1975 (units (unknown) date) Acct:[id number] unknown) (unknown) (no (unknown) (unknown) Dept at (units (unkno wn) date) . unknown) (unknown) (no (unknown) (unknown) Documented By: (units (unknown) date) Phuong Toledo MD unknown) 04/01/22 1101 (unknown) (no (unknown) (unknown) Family History (units (unknown) date) (Updated 02/25/21 unknown) @ 18:59 by Orin Jacques) (unknown) (no (unknown) (unknown) Father Age: 78 (units (unknown) date) Heart disease unknown) (unknown) (no (unknown) (unknown) Foot pain (units (unkn own) date) unknown) (unknown) (no (unknown) (unknown) Grandfather (units (un known) date) Stroke unknown) (unknown) (no (unknown) (unknown) Herpes (units (unkno wn) date) unknown) (unknown) (no (unknown) (unknown) Intake (units (unkno wn) date) unknown) (unknown) (no (unknown) (unknown) Intake Note: (units (u nknown) date) unknown) (unknown) (no (unknown) (unknown) Intake performed (units (unknown) date) by: Corey Oneal unknown) (unknown) (no (unknown) (unknown) Intake- Clincial (units (unknown) date) Staff unknown) (unknown) (no (unknown) (unknown) Last Menstural (units (unknown) date) Cycle + Details unknown) (unknown) (no (unknown) (unknown) Last pap- 02/06/21 (units (unknown) date) NIL, last 4 NIL unknown) (unknown) (no (unknown) (unknown) Loc: [facility] (units (unkno wn) date) unknown) (unknown) (no (unknown) (unknown) Mammo- never (units (u nknown) date) unknown) (unknown) (no (unknown) (unknown) Medical History (units (unknown) date) (Updated 06/06/21 unknown) @ 16:18 by Precious Covarrubias MD) (unknown) (no (unknown) (unknown) Medications (units (un known) date) unknown) (unknown) (no (unknown) (unknown) Migraines (units (unkn own) date) unknown) (unknown) (no (unknown) (unknown) Mother Age: 71 (units (unknown) date) Hypertension unknown) (unknown) (no (unknown) (unknown) Other Menstrual (units (unknown) date) Period: unknown) Postmenopausal (unknown) (no (unknown) (unknown) PFSH (units (unkno wn) date) unknown) (unknown) (no (unknown) (unknown) Patient: (units (unkno wn) date) Bettie Christian unknown) MR#: M (unknown) (no (unknown) (unknown) Position Sitting (units (unknown) date) unknown) (unknown) (no (unknown) (unknown) Previous (units (unknown) date) section unknown) (unknown) (no (unknown) (unknown) Pt here for (units (un known) date) preventative exam unknown) (unknown) (no (unknown) (unknown) Pt is concerned (units (unknown) date) that she gets an unknown) 'infection' of some sort every time she has (unknown) (no (unknown) (unknown) Reason For Visit (units (unknown) date) unknown) (unknown) (no (unknown) (unknown) Signed By: (units (unk nown) date) unknown) (unknown) (no (unknown) (unknown) Smoking Status: (units (unknown) date) Current some day unknown) smoker (unknown) (no (unknown) (unknown) Status post tubal (units (unknown) date) ligation unknown) (11/18/14) (unknown) (no (unknown) (unknown) Surgical History (units (unknown) date) (Updated 02/25/21 unknown) @ 18:57 by Orin Jacques) (unknown) (no (unknown) (unknown) This note may (units ( unknown) date) have been all or unknown) partially generated using voice recognition (unknown) (no (unknown) (unknown) Tobacco + (units (unkn own) date) Substance Use unknown) (unknown) (no (unknown) (unknown) Tobacco Status (units (unknown) date) unknown) (unknown) (no (unknown) (unknown) Visit Reasons: (units (unknown) date) Prev Exam unknown) (unknown) (no (unknown) (unknown) Vitals (units (unkno wn) date) unknown) (unknown) (no (unknown) (unknown) Weight 126 lb (units ( unknown) date) unknown) (unknown) (no (unknown) (unknown) acyclovir 400 mg (units (unknown) date) tablet 400 mg PO unknown) 5XD HSV #25 tabs 03/20/22 [Rx Confirmed (unknown) (no (unknown) (unknown) banana Allergy (units (unknown) date) (Severe, Verified unknown) 04/01/22 11:02) (unknown) (no (unknown) (unknown) codeine [CODEINE] (units (unknown) date) Allergy unknown) (Intermediate, Verified 04/01/22 11:02) (unknown) (no (unknown) (unknown) cyclobenzaprine (units (unknown) date) 10 mg tablet 10 mg unknown) PO BEDTIME 02/06/21 [History Confirmed (unknown) (no (unknown) (unknown) estradiol-norethi (units (unknown) date) ndrone acet 0.5 unknown) mg-0.1 mg tablet 1 tab PO DAILY Menopause (unknown) (no (unknown) (unknown) grapefruit (units (unk nown) date) Allergy (Severe, unknown) Verified 04/01/22 11:02) (unknown) (no (unknown) (unknown) have occurred. If (units (unknown) date) there are any unknown) questions, please contact the Medical Records (unknown) (no (unknown) (unknown) hydrocodone (units (un known) date) [HYDROCODONE] unknown) Allergy (Severe, Verified 04/01/22 11:02) (unknown) (no (unknown) (unknown) intercourse (units (un known) date) unknown) (unknown) (no (unknown) (unknown) loratadine 10 mg (units (unknown) date) capsule (Claritin unknown) Liqui-Gel) 10 mg PO QDAY ##30 10/19/17 [Rx (unknown) (no (unknown) (unknown) may occur. (units (unk nown) date) Occasional unknown) wrong-word or 'sound-alike' substitutions may have (unknown) (no (unknown) (unknown) occurred due to (units (unknown) date) the inherent unknown) limitations of voice recognition software. Please (unknown) (no (unknown) (unknown) prednisone 20 mg (units (unknown) date) tablet 20 mg PO unknown) DAILY 02/06/21 [History Confirmed 04/01/22] (unknown) (no (unknown) (unknown) read the note (units ( unknown) date) carefully and unknown) recognize, using context, where these substitutions (unknown) (no (unknown) (unknown) shellfish derived (units (unknown) date) Allergy (Severe, unknown) Verified 04/01/22 11:02) (unknown) (no (unknown) (unknown) software. 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 (unknown) (no (unknown) (unknown) symptoms #28 tabs (units (unknown) date) 06/06/21 [Rx unknown) Confirmed 04/01/22] (unknown) (no (unknown) (unknown) tramadol 50 mg (units (unknown) date) tablet (Ultram) 50 unknown) mg PO Q8H PRN pain #7 tabs 01/14/20 [Rx Result panel 3 (unknown) (no date) (unknown) (unknown) Negative (units unknown) 07496-3 (unknown) (no date) (unknown) (unknown) Negative (units unknown) 84660-6 (unknown) (no date) (unknown) (unknown) Negative (units unknown) 00680-4 (unknown) (no date) (unknown) (unknown) Negative (units unknown) 6410-5 (unknown) (no date) (unknown) (unknown) Negative (units unknown) 6568-0 (unknown) (no date) (unknown) (unknown) Negative (units unknown) 10795-6 Result panel 4 (unknown) (no date) (unknown) (unknown) Non Reactive (units 2 0507-0 unknown) Result panel 5 (unknown) (no (unknown) (unknown) (no value) (units (unk nown) date) unknown) (unknown) (no (unknown) (unknown) Medications: (units (u nknown) date) unknown) (unknown) (no (unknown) (unknown) Orders: (units (unkno wn) date) unknown) (unknown) (no (unknown) (unknown) (no value) (units (unk nown) date) unknown) (unknown) (no (unknown) (unknown) 04/01/22 (units (unkno wn) date) unknown) (unknown) (no (unknown) (unknown) 11:10 (units (unkno wn) date) unknown) (unknown) (no (unknown) (unknown) [place], [place] (units ( unknown) date) [id number] unknown) (unknown) (no (unknown) (unknown) Diabetes mellitus (units (unknown) date) unknown) (unknown) (no (unknown) (unknown) Draft (units (unkno wn) date) unknown) (unknown) (no (unknown) (unknown) [facility] ([facility] date[facility] unknown) (unknown) (no (unknown) (unknown) Gynecology Visit (units (unknown) date) unknown) (unknown) (no (unknown) (unknown) High cholesterol (units (unknown) date) unknown) (unknown) (no (unknown) (unknown) Hypertension (units (u nknown) date) unknown) (unknown) (no (unknown) (unknown) RASH (units (unkno wn) date) unknown) (unknown) (no (unknown) (unknown) Rash (units (unkno wn) date) unknown) (unknown) (no (unknown) (unknown) Swelling of (units (un known) date) Lip/Tongue/Throat unknown) (unknown) (no (unknown) (unknown) Use daily for 14 (units (unknown) date) days, then 2x unknown) weekly. 1 g vaginal DAILY 42.5 grams 2RF (unknown) (no (unknown) (unknown) (no value) (units (unk nown) date) unknown) (unknown) (no (unknown) (unknown) (general) (units (unkn own) date) (routine) without unknown) abnormal findings (unknown) (no (unknown) (unknown) [id number] (units (unkn own) date) unknown) (unknown) (no (unknown) (unknown) 04/01/22 (units (unkno wn) date) unknown) (unknown) (no (unknown) (unknown) 04/01/22] (units (unkn own) date) unknown) (unknown) (no (unknown) (unknown) Affirm Vaginosis (units (unknown) date) [place] Bacterial unknown) Today N89.8 - Other specified noninflammatory (unknown) (no (unknown) (unknown) Age/Sex: 46 / F (units (unknown) date) Date of Service: unknown) (unknown) (no (unknown) (unknown) Allergies (units (unkn own) date) unknown) (unknown) (no (unknown) (unknown) Anesthesia (units (unk nown) date) unknown) (unknown) (no (unknown) (unknown) Anxiety (units (unkno wn) date) unknown) (unknown) (no (unknown) (unknown) Assessment + Plan (units (unknown) date) unknown) (unknown) (no (unknown) (unknown) Asthma (units (unkno wn) date) unknown) (unknown) (no (unknown) (unknown) Attending Dr: (units ( unknown) date) Phuong Toledo MD unknown) (unknown) (no (unknown) (unknown) Auscultation: (units ( unknown) date) clear to unknown) auscultation bilaterally (unknown) (no (unknown) (unknown) BP 94/62 (units (unkno wn) date) unknown) (unknown) (no (unknown) (unknown) Bimanual Exam- (units (unknown) date) Adnexa, other: unknown) normal adnexae, no masses and non-tender (unknown) (no (unknown) (unknown) Bimanual Exam- (units (unknown) date) Vagina + Uterus: unknown) normal bimanual exam, normal palpation, uterine (unknown) (no (unknown) (unknown) Blood Pressure (units (unknown) date) Location Rt unknown) brachial (unknown) (no (unknown) (unknown) Breast inspection: (units (unknown) date) normal inspection unknown) of the breasts and normal inspection of the (unknown) (no (unknown) (unknown) Breast palpation: (units (unknown) date) normal palpation unknown) of the breasts and normal palpation of the (unknown) (no (unknown) (unknown) Card (units (unkno wn) date) unknown) (unknown) (no (unknown) (unknown) Cardio (units (unkno wn) date) unknown) (unknown) (no (unknown) (unknown) Chest (units (unkno wn) date) unknown) (unknown) (no (unknown) (unknown) Chest: normal (units ( unknown) date) inspection of the unknown) chest (unknown) (no (unknown) (unknown) Chief Complaint (units (unknown) date) unknown) (unknown) (no (unknown) (unknown) Chief Complaint: (units (unknown) date) annual exam unknown) (unknown) (no (unknown) (unknown) Chlamydia/Gonoc/M (units (unknown) date) yco Genital Today unknown) N89.8 - Other specified noninflammatory (unknown) (no (unknown) (unknown) Confirmed (units (unkn own) date) 04/01/22] unknown) (unknown) (no (unknown) (unknown) Const (units (unkno wn) date) unknown) (unknown) (no (unknown) (unknown) : 1975 (units (unknown) date) Acct:[id number] unknown) (unknown) (no (unknown) (unknown) Dept at (units (unkno wn) date) . unknown) (unknown) (no (unknown) (unknown) Details: (units (unkno wn) date) unknown) (unknown) (no (unknown) (unknown) Documented By: (units (unknown) date) Phuong Toledo MD unknown) 04/01/22 1101 (unknown) (no (unknown) (unknown) Effort + (units (unkno wn) date) Inspection: normal unknown) respiratory effort (unknown) (no (unknown) (unknown) Endo (units (unkno wn) date) unknown) (unknown) (no (unknown) (unknown) Exam (units (unkno wn) date) unknown) (unknown) (no (unknown) (unknown) External Female (units (unknown) date) Exam: normal unknown) external appearance and normal appearance of the (unknown) (no (unknown) (unknown) Extrem (units (unkno wn) date) unknown) (unknown) (no (unknown) (unknown) Family History (units (unknown) date) (Reviewed 04/01/22 unknown) @ 16:12 by Phuong Toledo MD) (unknown) (no (unknown) (unknown) Father Age: 78 (units (unknown) date) Heart disease unknown) (unknown) (no (unknown) (unknown) Foot pain (units (unkn own) date) unknown) (unknown) (no (unknown) (unknown) GI (units (unkno wn) date) unknown) (unknown) (no (unknown) (unknown) (units (unkno wn) date) unknown) (unknown) (no (unknown) (unknown) Gastrointestinal: (units (unknown) date) Reports system unknown) reviewed and no additional complaints, except (unknown) (no (unknown) (unknown) General: (units (unkno wn) date) cooperative, unknown) healthy appearing, comfortable and well groomed (unknown) (no (unknown) (unknown) General: no (units (un known) date) rashes or lesions unknown) noted (unknown) (no (unknown) (unknown) General: normal (units (unknown) date) to inspection unknown) (unknown) (no (unknown) (unknown) Grandfather (units (un known) date) Stroke unknown) (unknown) (no (unknown) (unknown) HIV 1 + 2 Ab/Ag (units (unknown) date) 4th Gen Combo unknown) Today Z01.419 - Encounter for gynecological (unknown) (no (unknown) (unknown) HPI (units (unkno wn) date) unknown) (unknown) (no (unknown) (unknown) Nahid/Lymph (units (unk nown) date) unknown) (unknown) (no (unknown) (unknown) Hep C Virus Ab (units (unknown) date) w/Reflex Quant unknown) Today Z01.419 - Encounter for gynecological (unknown) (no (unknown) (unknown) Hepatitis B (units (un known) date) Surface Antigen unknown) Today Z01.419 - Encounter for gynecological (unknown) (no (unknown) (unknown) Herpes (units (unkno wn) date) unknown) (unknown) (no (unknown) (unknown) Inspection: scar (units (unknown) date) (pfannenstiel) unknown) (unknown) (no (unknown) (unknown) Intake (units (unkno wn) date) unknown) (unknown) (no (unknown) (unknown) Intake Note: (units (u nknown) date) unknown) (unknown) (no (unknown) (unknown) Intake performed (units (unknown) date) by: Corey Oneal unknown) (unknown) (no (unknown) (unknown) Intake- Clincial (units (unknown) date) Staff unknown) (unknown) (no (unknown) (unknown) Last Menstural (units (unknown) date) Cycle + Details unknown) (unknown) (no (unknown) (unknown) Last pap- 02/06/21 (units (unknown) date) NIL, last 4 NIL unknown) (unknown) (no (unknown) (unknown) Loc: [facility] (units (unkno wn) date) unknown) (unknown) (no (unknown) (unknown) Mammo- never (units (u nknown) date) unknown) (unknown) (no (unknown) (unknown) Medical History (units (unknown) date) (Reviewed 04/01/22 unknown) @ 16:12 by Phuong Toledo MD) (unknown) (no (unknown) (unknown) Medications (units (un known) date) unknown) (unknown) (no (unknown) (unknown) Migraines (units (unkn own) date) unknown) (unknown) (no (unknown) (unknown) Mother Age: 71 (units (unknown) date) Hypertension unknown) (unknown) (no (unknown) (unknown) Musc (units (unkno wn) date) unknown) (unknown) (no (unknown) (unknown) Neck (units (unkno wn) date) unknown) (unknown) (no (unknown) (unknown) Neck mass: No (units ( unknown) date) unknown) (unknown) (no (unknown) (unknown) Neck: normal (units (u nknown) date) visual inspection unknown) (unknown) (no (unknown) (unknown) Neuro (units (unkno wn) date) unknown) (unknown) (no (unknown) (unknown) Neurologic: (units (un known) date) Reports system unknown) reviewed and no additional complaints, except as (unknown) (no (unknown) (unknown) New (units (unkno wn) date) unknown) (unknown) (no (unknown) (unknown) Orders (units (unkno wn) date) unknown) (unknown) (no (unknown) (unknown) Other Menstrual (units (unknown) date) Period: unknown) Postmenopausal (unknown) (no (unknown) (unknown) PFSH (units (unkno wn) date) unknown) (unknown) (no (unknown) (unknown) Palpation: soft (units (unknown) date) and nontender unknown) (unknown) (no (unknown) (unknown) Patient: (units (unkno wn) date) Bettie Christian A unknown) MR#: M (unknown) (no (unknown) (unknown) Position Sitting (units (unknown) date) unknown) (unknown) (no (unknown) (unknown) Previous (units (unknown) date) section unknown) (unknown) (no (unknown) (unknown) Pt here for (units (un known) date) preventative exam unknown) (unknown) (no (unknown) (unknown) Pt is concerned (units (unknown) date) that she gets an unknown) 'infection' of some sort every time she has (unknown) (no (unknown) (unknown) ROS (units (unkno wn) date) unknown) (unknown) (no (unknown) (unknown) RPR W Reflex to (units (unknown) date) Titer Today unknown) Z01.419 - Encounter for gynecological examination (unknown) (no (unknown) (unknown) Rate: regular (units ( unknown) date) rate unknown) (unknown) (no (unknown) (unknown) Reason For Visit (units (unknown) date) unknown) (unknown) (no (unknown) (unknown) Reports as per (units (unknown) date) HPI unknown) (unknown) (no (unknown) (unknown) Reports system (units (unknown) date) reviewed and no unknown) additional complaints, except as documented (unknown) (no (unknown) (unknown) Resp (units (unkno wn) date) unknown) (unknown) (no (unknown) (unknown) Rhythm: regular (units (unknown) date) rhythm unknown) (unknown) (no (unknown) (unknown) Signed By: (units (unk nown) date) unknown) (unknown) (no (unknown) (unknown) Skin (units (unkno wn) date) unknown) (unknown) (no (unknown) (unknown) Smoking Status: (units (unknown) date) Current some day unknown) smoker (unknown) (no (unknown) (unknown) Speculum Exam - (units (unknown) date) Vagina: normal unknown) appearance of the vagina and normal vaginal (unknown) (no (unknown) (unknown) Status post tubal (units (unknown) date) ligation unknown) (11/18/14) (unknown) (no (unknown) (unknown) Surgical History (units (unknown) date) (Reviewed 04/01/22 unknown) @ 16:12 by Phuong Toledo MD) (unknown) (no (unknown) (unknown) This note may (units ( unknown) date) have been all or unknown) partially generated using voice recognition (unknown) (no (unknown) (unknown) This patient is a (units (unknown) date) 46yo P9 with a unknown) history of premature ovarian insufficiency, (unknown) (no (unknown) (unknown) Thyroid: thyroid (units (unknown) date) normal unknown) (unknown) (no (unknown) (unknown) Tobacco + (units (unkn own) date) Substance Use unknown) (unknown) (no (unknown) (unknown) Tobacco Status (units (unknown) date) unknown) (unknown) (no (unknown) (unknown) Urethra: normal (units (unknown) date) appearance of the unknown) urethra (unknown) (no (unknown) (unknown) Visit Reasons: (units (unknown) date) Prev Exam unknown) (unknown) (no (unknown) (unknown) Vitals (units (unkno wn) date) unknown) (unknown) (no (unknown) (unknown) Weight 126 lb (units ( unknown) date) unknown) (unknown) (no (unknown) (unknown) acyclovir 400 mg (units (unknown) date) tablet 400 mg PO unknown) 5XD HSV #25 tabs 03/20/22 [Rx Confirmed (unknown) (no (unknown) (unknown) as documented (units ( unknown) date) unknown) (unknown) (no (unknown) (unknown) axillae (units (unkno wn) date) unknown) (unknown) (no (unknown) (unknown) banana Allergy (units (unknown) date) (Severe, Verified unknown) 04/01/22 11:02) (unknown) (no (unknown) (unknown) codeine [CODEINE] (units (unknown) date) Allergy unknown) (Intermediate, Verified 04/01/22 11:02) (unknown) (no (unknown) (unknown) cyclobenzaprine (units (unknown) date) 10 mg tablet 10 mg unknown) PO BEDTIME 02/06/21 [History Confirmed (unknown) (no (unknown) (unknown) discharge (units (unkn own) date) unknown) (unknown) (no (unknown) (unknown) disorders of (units (u nknown) date) vagina unknown) (unknown) (no (unknown) (unknown) documented (units (unk nown) date) unknown) (unknown) (no (unknown) (unknown) estradiol 0.01% (units (unknown) date) (0.1 mg/gram) unknown) vaginal cream 1 g vaginal DAILY postmenopausal (unknown) (no (unknown) (unknown) estradiol (units (unkn own) date) 0.01%(0.1mg/gram) unknown) (unknown) (no (unknown) (unknown) estradiol-norethi (units (unknown) date) ndrone acet 0.5 unknown) mg-0.1 mg tablet 1 tab PO DAILY Menopause (unknown) (no (unknown) (unknown) examination (units (un known) date) (general) unknown) (routine) without abnormal findings (unknown) (no (unknown) (unknown) grapefruit (units (unk nown) date) Allergy (Severe, unknown) Verified 04/01/22 11:02) (unknown) (no (unknown) (unknown) have occurred. If (units (unknown) date) there are any unknown) questions, please contact the Medical Records (unknown) (no (unknown) (unknown) hydrocodone (units (un known) date) [HYDROCODONE] unknown) Allergy (Severe, Verified 04/01/22 11:02) (unknown) (no (unknown) (unknown) intercourse (units (un known) date) unknown) (unknown) (no (unknown) (unknown) loratadine 10 mg (units (unknown) date) capsule (Claritin unknown) Liqui-Gel) 10 mg PO QDAY ##30 10/19/17 [Rx (unknown) (no (unknown) (unknown) may occur. (units (unk nown) date) Occasional unknown) wrong-word or 'sound-alike' substitutions may have (unknown) (no (unknown) (unknown) occurred due to (units (unknown) date) the inherent unknown) limitations of voice recognition software. Please (unknown) (no (unknown) (unknown) painful. She (units (u nknown) date) denies any unknown) additional symptoms today, is up to date on her pap (unknown) (no (unknown) (unknown) postmenopausal (units (unknown) date) vaginal atrophy unknown) E28.310 - Symptomatic premature menopause (unknown) (no (unknown) (unknown) prednisone 20 mg (units (unknown) date) tablet 20 mg PO unknown) DAILY 02/06/21 [History Confirmed 04/01/22] (unknown) (no (unknown) (unknown) presenting for an (units (unknown) date) annual exam. The unknown) patient reports concerns about abnormal (unknown) (no (unknown) (unknown) read the note (units ( unknown) date) carefully and unknown) recognize, using context, where these substitutions (unknown) (no (unknown) (unknown) resolved without (units (unknown) date) treatment. She is unknown) now asymptomatic, but is interested in STI (unknown) (no (unknown) (unknown) shellfish derived (units (unknown) date) Allergy (Severe, unknown) Verified 04/01/22 11:02) (unknown) (no (unknown) (unknown) size normal, (units (u nknown) date) uterine mobility unknown) normal and uterine shape normal (unknown) (no (unknown) (unknown) smears, and (units (un known) date) denies any changes unknown) in her medical or surgical history. (unknown) (no (unknown) (unknown) software. 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 She also (units (unknown) date) reports vaginal unknown) and vulvar dryness that makes intercourse (unknown) (no (unknown) (unknown) tramadol 50 mg (units (unknown) date) tablet (Ultram) 50 unknown) mg PO Q8H PRN pain #7 tabs 01/14/20 [Rx (unknown) (no (unknown) (unknown) urethra (units (unkno wn) date) unknown) (unknown) (no (unknown) (unknown) vaginal atrophy (units (unknown) date) #42.5 grams unknown) 04/01/22 [Rx Confirmed 04/01/22] (unknown) (no (unknown) (unknown) vaginal discharge (units (unknown) date) one month ago in unknown) the setting of a new partner, though this Result panel 6 (unknown) (no (unknown) (unknown) (no value) (units (unk nown) date) unknown) (unknown) (no (unknown) (unknown) Assessment and (units (unknown) date) Plan: unknown) (unknown) (no (unknown) (unknown) Medications: (units (u nknown) date) unknown) (unknown) (no (unknown) (unknown) Orders: (units (unkno wn) date) unknown) (unknown) (no (unknown) (unknown) Qualifiers: (units (un known) date) unknown) (unknown) (no (unknown) (unknown) Status: Acute (units ( unknown) date) unknown) (unknown) (no (unknown) (unknown) (no value) (units (unk nown) date) unknown) (unknown) (no (unknown) (unknown) 04/01/22 (units (unkno wn) date) unknown) (unknown) (no (unknown) (unknown) 04/01/22 1621 (units ( unknown) date) unknown) (unknown) (no (unknown) (unknown) 11:10 (units (unkno wn) date) unknown) (unknown) (no (unknown) (unknown) [place], [place] (units ( unknown) date) [id number] unknown) (unknown) (no (unknown) (unknown) Diabetes mellitus (units (unknown) date) unknown) (unknown) (no (unknown) (unknown) [facility]) (unknown) (no (unknown) (unknown) Gynecological (units ( unknown) date) examination unknown) findings: abnormal findings ABSENT Qualified (unknown) (no (unknown) (unknown) Gynecology Visit (units (unknown) date) unknown) (unknown) (no (unknown) (unknown) High cholesterol (units (unknown) date) unknown) (unknown) (no (unknown) (unknown) Hypertension (units (u nknown) date) unknown) (unknown) (no (unknown) (unknown) RASH (units (unkno wn) date) unknown) (unknown) (no (unknown) (unknown) Rash (units (unkno wn) date) unknown) (unknown) (no (unknown) (unknown) Signed (units (unkno wn) date) unknown) (unknown) (no (unknown) (unknown) Swelling of (units (un known) date) Lip/Tongue/Throat unknown) (unknown) (no (unknown) (unknown) Use daily for 14 (units (unknown) date) days, then 2x unknown) weekly. 1 g vaginal DAILY 42.5 grams 2RF (unknown) (no (unknown) (unknown) (no value) (units (unk nown) date) unknown) (unknown) (no (unknown) (unknown) (1) Symptomatic (units (unknown) date) premature unknown) menopause: (unknown) (no (unknown) (unknown) (2) Encounter for (units (unknown) date) Routine unknown) Gynecological Examination: (unknown) (no (unknown) (unknown) (general) (units (unkn own) date) (routine) without unknown) abnormal findings (unknown) (no (unknown) (unknown) [id number] (units (unkn own) date) unknown) (unknown) (no (unknown) (unknown) 04/01/22 (units (unkno wn) date) unknown) (unknown) (no (unknown) (unknown) 04/01/22] (units (unkn own) date) unknown) (unknown) (no (unknown) (unknown) Affirm Vaginosis (units (unknown) date) [place] Bacterial unknown) Today N89.8 - Other specified noninflammatory (unknown) (no (unknown) (unknown) Age/Sex: 46 / F (units (unknown) date) Date of Service: unknown) (unknown) (no (unknown) (unknown) Allergies (units (unkn own) date) unknown) (unknown) (no (unknown) (unknown) Anesthesia (units (unk nown) date) unknown) (unknown) (no (unknown) (unknown) Anxiety (units (unkno wn) date) unknown) (unknown) (no (unknown) (unknown) Assessment + Plan (units (unknown) date) unknown) (unknown) (no (unknown) (unknown) Asthma (units (unkno wn) date) unknown) (unknown) (no (unknown) (unknown) Attending Dr: (units ( unknown) date) Phuong Toledo MD unknown) (unknown) (no (unknown) (unknown) Auscultation: (units ( unknown) date) clear to unknown) auscultation bilaterally (unknown) (no (unknown) (unknown) BP 94/62 (units (unkno wn) date) unknown) (unknown) (no (unknown) (unknown) Bimanual Exam- (units (unknown) date) Adnexa, other: unknown) normal adnexae, no masses and non-tender (unknown) (no (unknown) (unknown) Bimanual Exam- (units (unknown) date) Vagina + Uterus: unknown) normal bimanual exam, normal palpation, uterine (unknown) (no (unknown) (unknown) Blood Pressure (units (unknown) date) Location Rt unknown) brachial (unknown) (no (unknown) (unknown) Breast inspection: (units (unknown) date) normal inspection unknown) of the breasts and normal inspection of the (unknown) (no (unknown) (unknown) Breast palpation: (units (unknown) date) normal palpation unknown) of the breasts and normal palpation of the (unknown) (no (unknown) (unknown) Card (units (unkno wn) date) unknown) (unknown) (no (unknown) (unknown) Cardio (units (unkno wn) date) unknown) (unknown) (no (unknown) (unknown) Chest (units (unkno wn) date) unknown) (unknown) (no (unknown) (unknown) Chest: normal (units ( unknown) date) inspection of the unknown) chest (unknown) (no (unknown) (unknown) Chief Complaint (units (unknown) date) unknown) (unknown) (no (unknown) (unknown) Chief Complaint: (units (unknown) date) annual exam unknown) (unknown) (no (unknown) (unknown) Chlamydia/Gonoc/M (units (unknown) date) yco Genital Today unknown) N89.8 - Other specified noninflammatory (unknown) (no (unknown) (unknown) Code(s): Z01.419 (units (unknown) date) - Encounter for unknown) gynecological examination (general) (routine) (unknown) (no (unknown) (unknown) Confirmed (units (unkn own) date) 04/01/22] unknown) (unknown) (no (unknown) (unknown) Const (units (unkno wn) date) unknown) (unknown) (no (unknown) (unknown) : 1975 (units (unknown) date) Acct:[id number] unknown) (unknown) (no (unknown) (unknown) Dept at (units (unkno wn) date) . unknown) (unknown) (no (unknown) (unknown) Details: (units (unkno wn) date) unknown) (unknown) (no (unknown) (unknown) Documented By: (units (unknown) date) Phuong Toledo MD unknown) 04/01/22 1101 (unknown) (no (unknown) (unknown) Effort + (units (unkno wn) date) Inspection: normal unknown) respiratory effort (unknown) (no (unknown) (unknown) Endo (units (unkno wn) date) unknown) (unknown) (no (unknown) (unknown) Exam (units (unkno wn) date) unknown) (unknown) (no (unknown) (unknown) External Female (units (unknown) date) Exam: normal unknown) external appearance and normal appearance of the (unknown) (no (unknown) (unknown) Extrem (units (unkno wn) date) unknown) (unknown) (no (unknown) (unknown) Family History (units (unknown) date) (Reviewed 04/01/22 unknown) @ 16:12 by Phuong Toledo MD) (unknown) (no (unknown) (unknown) Father Age: 78 (units (unknown) date) Heart disease unknown) (unknown) (no (unknown) (unknown) Foot pain (units (unkn own) date) unknown) (unknown) (no (unknown) (unknown) GI (units (unkno wn) date) unknown) (unknown) (no (unknown) (unknown) (units (unkno wn) date) unknown) (unknown) (no (unknown) (unknown) Gastrointestinal: (units (unknown) date) Reports system unknown) reviewed and no additional complaints, except (unknown) (no (unknown) (unknown) General: (units (unkno wn) date) cooperative, unknown) healthy appearing, comfortable and well groomed (unknown) (no (unknown) (unknown) General: no (units (un known) date) rashes or lesions unknown) noted (unknown) (no (unknown) (unknown) General: normal (units (unknown) date) to inspection unknown) (unknown) (no (unknown) (unknown) Grandfather (units (un known) date) Stroke unknown) (unknown) (no (unknown) (unknown) HIV 1 + 2 Ab/Ag (units (unknown) date) 4th Gen Combo unknown) Today Z01.419 - Encounter for gynecological (unknown) (no (unknown) (unknown) HPI (units (unkno wn) date) unknown) (unknown) (no (unknown) (unknown) Nahid/Lymph (units (unk nown) date) unknown) (unknown) (no (unknown) (unknown) Hep C Virus Ab (units (unknown) date) w/Reflex Quant unknown) Today Z01.419 - Encounter for gynecological (unknown) (no (unknown) (unknown) Hepatitis B (units (un known) date) Surface Antigen unknown) Today Z01.419 - Encounter for gynecological (unknown) (no (unknown) (unknown) Herpes (units (unkno wn) date) unknown) (unknown) (no (unknown) (unknown) Inspection: scar (units (unknown) date) (pfannenstiel) unknown) (unknown) (no (unknown) (unknown) Intake (units (unkno wn) date) unknown) (unknown) (no (unknown) (unknown) Intake Note: (units (u nknown) date) unknown) (unknown) (no (unknown) (unknown) Intake performed (units (unknown) date) by: Corey Oneal unknown) (unknown) (no (unknown) (unknown) Intake- Clincial (units (unknown) date) Staff unknown) (unknown) (no (unknown) (unknown) Last Menstural (units (unknown) date) Cycle + Details unknown) (unknown) (no (unknown) (unknown) Last pap- 02/06/21 (units (unknown) date) NIL, last 4 NIL unknown) (unknown) (no (unknown) (unknown) Loc: [facility] (units (unkno wn) date) unknown) (unknown) (no (unknown) (unknown) Mammo- never (units (u nknown) date) unknown) (unknown) (no (unknown) (unknown) Medical History (units (unknown) date) (Reviewed 04/01/22 unknown) @ 16:12 by Phuong Toledo MD) (unknown) (no (unknown) (unknown) Medications (units (un known) date) unknown) (unknown) (no (unknown) (unknown) Migraines (units (unkn own) date) unknown) (unknown) (no (unknown) (unknown) Mother Age: 71 (units (unknown) date) Hypertension unknown) (unknown) (no (unknown) (unknown) Musc (units (unkno wn) date) unknown) (unknown) (no (unknown) (unknown) Neck (units (unkno wn) date) unknown) (unknown) (no (unknown) (unknown) Neck mass: No (units ( unknown) date) unknown) (unknown) (no (unknown) (unknown) Neck: normal (units (u nknown) date) visual inspection unknown) (unknown) (no (unknown) (unknown) Neuro (units (unkno wn) date) unknown) (unknown) (no (unknown) (unknown) Neurologic: (units (un known) date) Reports system unknown) reviewed and no additional complaints, except as (unknown) (no (unknown) (unknown) New (units (unkno wn) date) unknown) (unknown) (no (unknown) (unknown) OB/External + (units ( unknown) date) Speculum: No unknown) vaginal bleeding (unknown) (no (unknown) (unknown) Orders (units (unkno wn) date) unknown) (unknown) (no (unknown) (unknown) Other Menstrual (units (unknown) date) Period: unknown) Postmenopausal (unknown) (no (unknown) (unknown) PFSH (units (unkno wn) date) unknown) (unknown) (no (unknown) (unknown) Palpation: soft (units (unknown) date) and nontender unknown) (unknown) (no (unknown) (unknown) Patient: (units (unkno wn) date) Bettie Christian A unknown) MR#: M (unknown) (no (unknown) (unknown) Position Sitting (units (unknown) date) unknown) (unknown) (no (unknown) (unknown) Previous (units (unknown) date) section unknown) (unknown) (no (unknown) (unknown) Pt here for (units (un known) date) preventative exam unknown) (unknown) (no (unknown) (unknown) Pt is concerned (units (unknown) date) that she gets an unknown) 'infection' of some sort every time she has (unknown) (no (unknown) (unknown) ROS (units (unkno wn) date) unknown) (unknown) (no (unknown) (unknown) RPR W Reflex to (units (unknown) date) Titer Today unknown) Z01.419 - Encounter for gynecological examination (unknown) (no (unknown) (unknown) Rate: regular (units ( unknown) date) rate unknown) (unknown) (no (unknown) (unknown) Reason For Visit (units (unknown) date) unknown) (unknown) (no (unknown) (unknown) Reports as per (units (unknown) date) HPI unknown) (unknown) (no (unknown) (unknown) Reports system (units (unknown) date) reviewed and no unknown) additional complaints, except as documented (unknown) (no (unknown) (unknown) Resp (units (unkno wn) date) unknown) (unknown) (no (unknown) (unknown) Rhythm: regular (units (unknown) date) rhythm unknown) (unknown) (no (unknown) (unknown) Signed By: (units (unk nown) date) <Electronically unknown) signed by Phuong Toledo MD> (unknown) (no (unknown) (unknown) Skin (units (unkno wn) date) unknown) (unknown) (no (unknown) (unknown) Smoking Status: (units (unknown) date) Current some day unknown) smoker (unknown) (no (unknown) (unknown) Speculum Exam - (units (unknown) date) Cervix: normal unknown) appearance of the cervix and patulous (unknown) (no (unknown) (unknown) Speculum Exam - (units (unknown) date) Vagina: normal unknown) vaginal discharge, vagina atrophic, not (unknown) (no (unknown) (unknown) Speculum Exam: no (units (unknown) date) vaginal bleeding unknown) (unknown) (no (unknown) (unknown) Status post tubal (units (unknown) date) ligation unknown) (11/18/14) (unknown) (no (unknown) (unknown) Surgical History (units (unknown) date) (Reviewed 04/01/22 unknown) @ 16:12 by Phuong Toledo MD) (unknown) (no (unknown) (unknown) This note may (units ( unknown) date) have been all or unknown) partially generated using voice recognition (unknown) (no (unknown) (unknown) This patient is a (units (unknown) date) 46yo P9 with a unknown) history of premature ovarian insufficiency, (unknown) (no (unknown) (unknown) This patient (units (u nknown) date) presents for a unknown) routine physical seeking STI testing, and routine (unknown) (no (unknown) (unknown) This patient (units (u nknown) date) presents for an unknown) annual exam with atrophic vaginal mucosa, causing (unknown) (no (unknown) (unknown) Thyroid: thyroid (units (unknown) date) normal unknown) (unknown) (no (unknown) (unknown) Tobacco + (units (unkn own) date) Substance Use unknown) (unknown) (no (unknown) (unknown) Tobacco Status (units (unknown) date) unknown) (unknown) (no (unknown) (unknown) Urethra: normal (units (unknown) date) appearance of the unknown) urethra (unknown) (no (unknown) (unknown) Visit Reasons: (units (unknown) date) Prev Exam unknown) (unknown) (no (unknown) (unknown) Vitals (units (unkno wn) date) unknown) (unknown) (no (unknown) (unknown) Weight 126 lb (units ( unknown) date) unknown) (unknown) (no (unknown) (unknown) acyclovir 400 mg (units (unknown) date) tablet 400 mg PO unknown) 5XD HSV #25 tabs 03/20/22 [Rx Confirmed (unknown) (no (unknown) (unknown) as documented (units ( unknown) date) unknown) (unknown) (no (unknown) (unknown) axillae (units (unkno wn) date) unknown) (unknown) (no (unknown) (unknown) banana Allergy (units (unknown) date) (Severe, Verified unknown) 04/01/22 11:02) (unknown) (no (unknown) (unknown) codeine [CODEINE] (units (unknown) date) Allergy unknown) (Intermediate, Verified 04/01/22 11:02) (unknown) (no (unknown) (unknown) cultures were (units (u nknown) date) collected and unknown) bloodwork ordered. We discussed seeking a mammogram, (unknown) (no (unknown) (unknown) cyclobenzaprine (units (unknown) date) 10 mg tablet 10 mg unknown) PO BEDTIME 02/06/21 [History Confirmed (unknown) (no (unknown) (unknown) disorders of (units (u nknown) date) vagina unknown) (unknown) (no (unknown) (unknown) documented (units (unk nown) date) unknown) (unknown) (no (unknown) (unknown) dyspareunia. We (units (unknown) date) discussed options, unknown) and she was prescribed vaginal estrogen cream (unknown) (no (unknown) (unknown) erythematous, no (units (unknown) date) lesions and No unknown) vaginal bleeding (unknown) (no (unknown) (unknown) estradiol 0.01% (units (unknown) date) (0.1 mg/gram) unknown) vaginal cream 1 g vaginal DAILY postmenopausal (unknown) (no (unknown) (unknown) estradiol (units (unkn own) date) 0.01%(0.1mg/gram) unknown) (unknown) (no (unknown) (unknown) estradiol-norethi (units (unknown) date) ndrone acet 0.5 unknown) mg-0.1 mg tablet 1 tab PO DAILY Menopause (unknown) (no (unknown) (unknown) examination (units (un known) date) (general) unknown) (routine) without abnormal findings (unknown) (no (unknown) (unknown) grapefruit (units (unk nown) date) Allergy (Severe, unknown) Verified 04/01/22 11:02) (unknown) (no (unknown) (unknown) have occurred. If (units (unknown) date) there are any unknown) questions, please contact the Medical Records (unknown) (no (unknown) (unknown) hydrocodone (units (un known) date) [HYDROCODONE] unknown) Allergy (Severe, Verified 04/01/22 11:02) (unknown) (no (unknown) (unknown) intercourse (units (un known) date) unknown) (unknown) (no (unknown) (unknown) loratadine 10 mg (units (unknown) date) capsule (Claritin unknown) Liqui-Gel) 10 mg PO QDAY ##30 10/19/17 [Rx (unknown) (no (unknown) (unknown) may occur. (units (unk nown) date) Occasional unknown) wrong-word or 'sound-alike' substitutions may have (unknown) (no (unknown) (unknown) occurred due to (units (unknown) date) the inherent unknown) limitations of voice recognition software. Please (unknown) (no (unknown) (unknown) painful. She (units (u nknown) date) denies any unknown) additional symptoms today, is up to date on her pap (unknown) (no (unknown) (unknown) postmenopausal (units (unknown) date) vaginal atrophy unknown) E28.310 - Symptomatic premature menopause (unknown) (no (unknown) (unknown) prednisone 20 mg (units (unknown) date) tablet 20 mg PO unknown) DAILY 02/06/21 [History Confirmed 04/01/22] (unknown) (no (unknown) (unknown) presenting for an (units (unknown) date) annual exam. The unknown) patient reports concerns about abnormal (unknown) (no (unknown) (unknown) read the note (units ( unknown) date) carefully and unknown) recognize, using context, where these substitutions (unknown) (no (unknown) (unknown) resolved without (units (unknown) date) treatment. She is unknown) now asymptomatic, but is interested in STI (unknown) (no (unknown) (unknown) shellfish derived (units (unknown) date) Allergy (Severe, unknown) Verified 04/01/22 11:02) (unknown) (no (unknown) (unknown) size normal, (units (u nknown) date) uterine mobility unknown) normal and uterine shape normal (unknown) (no (unknown) (unknown) smears, and (units (un known) date) denies any changes unknown) in her medical or surgical history. (unknown) (no (unknown) (unknown) software. 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 She also (units (unknown) date) reports vaginal unknown) and vulvar dryness that makes intercourse (unknown) (no (unknown) (unknown) to use daily for (units (unknown) date) 14 days, then 2x unknown) weekly. We discussed not initiating treatment (unknown) (no (unknown) (unknown) tramadol 50 mg (units (unknown) date) tablet (Ultram) 50 unknown) mg PO Q8H PRN pain #7 tabs 01/14/20 [Rx (unknown) (no (unknown) (unknown) until her STI (units ( unknown) date) results return. unknown) (unknown) (no (unknown) (unknown) urethra (units (unkno wn) date) unknown) (unknown) (no (unknown) (unknown) vaginal atrophy (units (unknown) date) #42.5 grams unknown) 04/01/22 [Rx Confirmed 04/01/22] (unknown) (no (unknown) (unknown) vaginal discharge (units (unknown) date) one month ago in unknown) the setting of a new partner, though this (unknown) (no (unknown) (unknown) which does not (units (unknown) date) require referral. unknown) Precautions for return discussed. Return in 1 (unknown) (no (unknown) (unknown) without abnormal (units (unknown) date) findings unknown) (unknown) (no (unknown) (unknown) year or PRN. (units (u nknown) date) unknown) Result panel 7 (unknown) (no date) (unknown) (unknown) Non Reactive (units ( unknown) unknown) Result panel 8 (unknown) (no date) (unknown) (unknown) Negative (units (unkn own) unknown) (unknown) (no date) (unknown) (unknown) Negative (units (unkn own) unknown) Result panel 9 (unknown) (no date) (unknown) (unknown) NEGATIVE s/c (unkn own) Result panel 10 (unknown) (no date) (unknown) (unknown) NEGATIVE (units (unkn own) unknown) (unknown) (no date) (unknown) (unknown) NEGATIVE s/c (unkn own) Result panel 11 (unknown) (no date) (unknown) (unknown) Negative (units (unkn own) unknown) (unknown) (no date) (unknown) (unknown) Negative (units (unkn own) unknown) (unknown) (no date) (unknown) (unknown) Negative (units (unkn own) unknown) (unknown) (no date) (unknown) (unknown) Negative (units (unkn own) unknown) Social History date description facility (no date) Current some day smoker [facility] Vital Signs date measurement value units [id number] BP_diastolic BP_diastolic 62 mm[H g] [id number]+0000 BP_systolic BP_systolic 94 mm[Hg] [id number]+0000 weight_metric weight_metric 57.15 kg [id number] weight_standard weight_standard 125.99 lb
[2022-06-14] MEDS ORDERED: oxyCODONE 5 MG TABLET PO STA (12:35)
--- NOTE | 2022-06-14 12:36 | ED Physician Documentation ---
PD HPI UPPER EXT INJURY - Stated complaint Stated Complaint: R FINGERS SWELLING - Chief complaint Chief Complaint: Trauma Ext - History obtained from History obtained from: Patient (She was walking up the stairs doing laundry last night and fell and injured her right fifth finger. She also injured the left fifth finger but that is not as bad. 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: section, Tubal ligation - Present Medications Home Medications: Ambulatory Orders Medication Instructions Recorded Confirmed Estradiol/Norethindrone Acet 1 each PO 02/07/22 [Amabelz 0.5 mg-0.1 mg Tablet] Pnv No.95/Ferrous Fum/Folic AC 02/07/22 [ Tablet] Doxycycline Hyclate 100 mg PO BID #20 tab.sr 02/08/22 Oxycodone HCl/Acetaminophen 1 - 2 each PO Q6H PRN #14 tablet 06/14/22 [Percocet 5-325 mg Tablet] - Allergies Allergies/Adverse Reactions: Allergies Allergy/AdvReac Type Severity Reaction Status Date / Time codeine Allergy Hives Verified 06/14/22 09:57 hydrocodone Allergy Unknown Verified 06/14/22 09:57 - Social History Does the pt smoke?: No Smoking Status: Never smoker Does the pt drink ETOH?: Yes Does the pt have substance abuse?: No - Immunizations Immunizations are current?: No Immunizations: TDAP >10years/unknown, Other immun current - POLST Patient has POLST: No PD ED PE NORMAL - Vitals Vital signs reviewed: Yes - General General: Alert and oriented X 3, No acute distress - Extremities Extremities: Other (She has a mallet finger deformity of the right fifth finger with tenderness at the DIP. The left fifth finger is also tender at the DIP but without deformity. There is bruising of the anterior left wrist but no tenderness there. Also bruising over the right third MCP but no tenderness there.) - Neuro Neuro: Alert and oriented X 3, Normal speech Results - Vitals Vitals: Vital Signs - 24 hr 06/14/22 09:57 Temperature 36.5 C Heart Rate 77 Respiratory 16 Rate Blood Pressure 111/74 O2 Saturation 100 Oxygen O2 Source Room air Procedures - Splint (location) R 5th finger Splint applied by: Physician Type of splint: Other (mallet finger splint) Other: Patient tolerated well, No complications, Neurovascular intact L 5th finger Splint applied by: Physician Type of splint: Metal foam finger splint Other: Patient tolerated well Departure - Departure Disposition: 01 Home, Self Care Clinical Impression: Mallet finger of right finger(s) Fracture of finger, left Qualifiers: Encounter type: initial encounter Finger: little finger Fracture type: closed Phalanx: distal Fracture alignment: nondisplaced Qualified Code(s): S62.667A - Nondisplaced fracture of distal phalanx of left little finger, initial encounter for closed fracture Condition: Good Instructions: ED Fx Mallet Finger Follow-Up: [facility] [Provider Group] Prescriptions: Oxycodone HCl/Acetaminophen [Percocet 5-325 mg Tablet] 1 - 2 each PO Q6H PRN #14 tablet PRN Reason: pain Comments: As discussed, you broke pinky fingers on both hands but the right is worse. You should keep the splint on and dry to both. Follow-up with orthopedics in a week. I sent your prescription electronically to [facility] in [place]. If pain is mild you can and should take just ibuprofen per package instructions. If you take the prescription pain medication do not drink or drive with it. I am prescribing a short course of narcotic pain medication for you. These are potentially dangerous and addictive medications that should be used carefully. These medications may constipate you. Take an [id number]-yehbftv stool softener (docusate) twice daily with plenty of water while taking these medications. If you go 24 hours without a bowel movement, take [id number]-low-[id number] miralax, per package instructions. Do not drink or drive while taking these medications. If you received narcotic or sedating medications while in the emergency department, do not drive for 24 hours. Store this medication in a safe, secure place and out of reach of children. It is a violation of federal law to give or sell this medication to another person or to use in a manner other than prescribed. The ED will not refill narcotic prescriptions, including prescriptions lost or stolen. To dispose of unwanted medications: 1. [facility] at [address] in [place] has a medication drop box. They accept prescription medications (in pill form) Friday through Friday 9:00 a.m. to 5:00 p.m. 2. [facility] accepts prescription medications (in pill form only) for disposal year round. Call for more information. 3. Contact the [facility] for the next [facility] sponsored prescription drug collection event. , [phone], or [phone]; Note that many narcotic pain relievers also contain Tylenol/acetaminophen. Please ensure that your total dose of acetaminophen from all sources does not exceed 3 g (3000 mg) per day. Forms: Activity restrictions
--- NOTE | 2022-06-14 12:49 | XRAY Report ---
PROCEDURE: Finger(s) LT INDICATIONS: l pinky inj TECHNIQUE: AP hand, 3 views of the there finger(s) acquired. COMPARISON: X-ray finger 06/14/2022 FINDINGS: Bones: There has been interval reduction of fifth DIP joint subluxation with good anatomic alignment . Punctate area of calcification remains adjacent to the joint space. No suspicious bony lesions. Soft tissues: No suspicious soft tissue calcifications. IMPRESSION: Interval reduction of previous fifth DIP subluxation with good anatomic alignment. There is persisten t appearance of punctate adjacent calcification. Avulsion fracture cannot be excluded. Reviewed by: Viv Bruner MD on 06/14/2022 12:47 PM PDT Approved by: Viv Bruner MD on 06/14/2022 12:47 PM PDT Station ID: [id number]
== END 2022-06-14 13:12 | disposition home or self-care (01) ==
LOC: ED 09:51
DX: S62.667A Nondisplaced fracture of distal phalanx of left little finger, initial encounter for closed fracture (principal); W19.XXXA Unspecified fall, initial encounter; Y93.E2 Activity, laundry
CPT/HCPCS: 29130; 73140; 99283; A9270

== ENCOUNTER 2022-07-22 11:59 | Emergency (ER) | payer MEDICAID, OTHER ==
[2022-07-22 12:04] VITALS: BP 112/79
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
[2022-07-22] MEDS ORDERED: ACETAMINOPHEN 325 MG TABLET PO STA (12:10)
[2022-07-22] MEDS ORDERED: IBUPROFEN 600 MG TABLET PO STA (12:10)
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
== END 2022-07-22 13:04 | disposition home or self-care (01) ==
LOC: EDUNIT# → ED 11:59
DX: S20.212A Contusion of left front wall of thorax, initial encounter (principal); S92.355A Nondisplaced fracture of fifth metatarsal bone, left foot, initial encounter for closed fracture; X50.1XXA Overexertion from prolonged static or awkward postures, initial encounter; Y93.02 Activity, running; Y33.XXXA Other specified events, undetermined intent, initial encounter
CPT/HCPCS: 71045; 73610; 99284; A9270

== ENCOUNTER → 2022-07-22 | Outpatient (CLI) | payer MEDICAID, OTHER | END | disposition critical access hospital (66) | LOC: EMS 11:38 | DX: M79.672 Pain in left foot (principal); X58.XXXA Exposure to other specified factors, initial encounter; Y92.039 Unspecified place in apartment as the place of occurrence of the external cause | CPT/HCPCS: A0425; A0429; A0999 ==

== ENCOUNTER 2022-09-08 21:37 | Emergency (ER) | payer MEDICAID, OTHER ==
[2022-09-08 21:49] VITALS: BP 120/50
[2022-09-08 22:52] LABS: B. PARAPERTUSSIS- RESP PCR PAN NOT DETECTED; B. PERTUSSIS- RESP PCR PANEL NOT DETECTED; C. PNEUMONIAE- RESP PCR PANEL NOT DETECTED; CORONAVIRUS 229E-RESP PCR NOT DETECTED; CORONAVIRUS HKU1-RESP PCR NOT DETECTED; CORONAVIRUS NL63-RESP PCR NOT DETECTED; CORONAVIRUS OC43-RESP PCR NOT DETECTED; HUMAN METAPNEUMOVIRUS NOT DETECTED; INFLUENZA A- RESP PCR PANEL NOT DETECTED; INFLUENZA B - RESP PCR PANEL NOT DETECTED; M. PNEUMONIAE- RESP PCR PANEL NOT DETECTED; PARAINFLUENZA VIRUS 1 NOT DETECTED; PARAINFLUENZA VIRUS 2 NOT DETECTED; PARAINFLUENZA VIRUS 3 NOT DETECTED; PARAINFLUENZA VIRUS 4 NOT DETECTED; RHINOVIRUS/ENTEROVIRUS NOT DETECTED; RSV- RESP PCR PANEL NOT DETECTED; SARS-CoV-2 -RESP PCR PANEL NOT DETECTED
--- NOTE | 2022-09-08 23:17 | ED Physician Documentation ---
History of Present Illness - Stated complaint Stated Complaint: COUGH, DIZZY, CONGESTION - Chief complaint Chief Complaint: Resp - Additonal information Additional information: Patient 47-year-old female presenting to the emergency department, cough, congestion and intermittent episodes of dizziness. Symptoms ongoing x3 days. Reports has felt dizzy particularly when standing up from a sitting position. Has had cough and sinus pressure. Denies fever. Denies chest pain or shortness of breath. 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, Tubal ligation - Present Medications Home Medications: Ambulatory Orders Medication Instructions Recorded Confirmed Estradiol/Norethindrone Acet 1 each PO DAILY 02/07/22 09/08/22 [Amabelz 0.5 mg-0.1 mg Tablet] Pnv No.95/Ferrous Fum/Folic AC 1 tab PO DAILY 02/07/22 09/08/22 [ Tablet] Oxycodone HCl/Acetaminophen 1 - 2 each PO Q6H PRN #14 tablet 06/14/22 09/08/22 [Percocet 5-325 mg Tablet] Naproxen 500 mg PO BID #20 tab 07/22/22 09/08/22 Acyclovir 400 mg PO 5XD 09/08/22 09/08/22 Cyclobenzaprine [Flexeril] 10 mg PO QPM 09/08/22 09/08/22 Oxymetazoline HCl [Afrin] 15 ml NS Q4HR #1 each 09/08/22 Pseudoephedrine HCl [Sudafed 240 mg PO DAILY #10 tab 09/08/22 24-Hour] - Allergies Allergies/Adverse Reactions: Allergies Allergy/AdvReac Type Severity Reaction Status Date / Time codeine Allergy Hives Verified 07/22/22 12:04 hydrocodone Allergy Unknown Verified 07/22/22 12:04 - Social History Does the pt smoke?: No Smoking Status: Former smoker Does the pt drink ETOH?: Yes Does the pt have substance abuse?: No - Immunizations Immunizations are current?: No Immunizations: TDAP >10years/unknown, Other immun current - POLST Patient has POLST: No PD ED PE NORMAL - Vitals Vital signs reviewed: Yes - General General: Alert and oriented X 3, No acute distress, Well developed/nourished - HEENT HEENT: Atraumatic, PERRL, EOMI, Ears normal, Moist mucous membranes, Pharynx benign - Neck Neck: Supple, no meningeal sign, No bony TTP, No adenopathy, Thyroid normal - Cardiac Cardiac: RRR - Respiratory Respiratory: No respiratory distress, Clear bilaterally - Abdomen Abdomen: Normal bowel sounds, Non tender - Female Female : Deferred - Rectal Rectal: Deferred Results - Vitals Vitals: Vital Signs - 24 hr 09/08/22 21:45 Temperature 37.2 C Heart Rate 99 Respiratory 18 Rate Blood Pressure 120/50 L O2 Saturation 100 Oxygen O2 Source Room air - Labs Labs: Laboratory Tests 09/08/22 21:47 Nasal Adenovirus (PCR) DETECTED A Nasal B. parapertussis DNA (PCR) NOT DETECTED Nasal Coronavir 229E PCR NOT DETECTED Nasal Coronavir HKU1 PCR NOT DETECTED Nasal Coronavir NL63 PCR NOT DETECTED Nasal Coronavir OC43 PCR NOT DETECTED Nasal Enterovir/Rhinovir PCR NOT DETECTED Nasal Influenza B PCR NOT DETECTED Nasal Influenza A PCR NOT DETECTED Nasal Parainfluen 1 PCR NOT DETECTED Nasal Parainfluen 2 PCR NOT DETECTED Nasal Parainfluen 3 PCR NOT DETECTED Nasal Parainfluen 4 PCR NOT DETECTED Nasal RSV (PCR) NOT DETECTED Nasal B.pertussis DNA PCR NOT DETECTED Nasal C.pneumoniae (PCR) NOT DETECTED Tommy Human Metapneumo PCR NOT DETECTED Nasal M.pneumoniae (PCR) NOT DETECTED Nasal SARS-CoV-2 (PCR) NOT DETECTED PD Medical Decision Making - ED course Complexity details: reviewed results, d/w patient ED course: Patient 47-year-old female presenting to the emergency department with cough, c ongestion, dizziness. Afebrile, hemodynamically stable. No focal or lateralizing neurologic deficits. HEENT exam benign. Clear aeration in all lung irizarry. Found to be adenovirus positive. Discussed nature of adenovirus including symptomatic management. Will discharge for follow-up with primary care. Clear return precautions given. Final clinical impression, adenovirus infection. Departure - Departure Disposition: 01 Home, Self Care Clinical Impression: Adenovirus infection Instructions: ED Viral Syndrome Prescriptions: Oxymetazoline HCl [Afrin] 15 ml NS Q4HR #1 each Pseudoephedrine HCl [Sudafed 24-Hour] 240 mg PO DAILY #10 tab Comments: Thank you for allowing us to care for you today [facility]. Your prescriptions were sent electronically to [facility] in [place]. Today in the emergency department you are diagnosed with an acute adenovirus infection. This is a common cold virus however it does tend to last longer than the average common cold virus, sometimes up to or greater than 14 days. Please drink plenty fluids and get plenty of rest. I have sent some medications to help including oral and nasal decongestants. You can also use [id number] Motrin and Tylenol for any fever or body ache. Please follow-up with your primary care doctor soon as possible, if it anytime you have new or worsening symptoms please not hesitate to return.
== END 2022-09-08 23:25 | disposition home or self-care (01) ==
LOC: ED 21:37
DX: B34.0 Adenovirus infection, unspecified (principal); Z20.822 Contact with and (suspected) exposure to COVID-19; Z87.891 Personal history of nicotine dependence
CPT/HCPCS: 87633; 99282; 99283

== ENCOUNTER 2023-07-02 21:56 | Outpatient (CLI) | payer MEDICAID | END 2023-07-02 21:57 | disposition EMS.NT | LOC: EMS 21:56 | DX: S50.812A Abrasion of left forearm, initial encounter (principal); Y04.8XXA Assault by other bodily force, initial encounter ==

== ENCOUNTER 2023-10-27 11:32 | Emergency (ER) | payer MEDICAID, OTHER ==
[2023-10-27 11:48] VITALS: BP 104/74; O2SAT 100
[2023-10-27] MEDS: oxyCODONE 5 MG TABLET PO STA (12:39)
[2023-10-27] MEDS: predniSONE 20 MG TABLET PO STA (12:39)
[2023-10-27] MEDS: methocarbamoL 500 MG TABLET PO STA (12:40)
--- NOTE | 2023-10-27 12:42 | ED Physician Documentation ---
PD HPI BACK PAIN - Stated complaint Stated Complaint: LOWER BACK PX - Chief complaint Chief Complaint: Trauma Ch/Bk - History obtained from History obtained from: Patient - History of Present Illness Timing - onset: How many days ago (3) Timing - duration: Days (3) Timing - details: Gradual onset Pain level max: 8 Pain level now: 8 Location: Lower, Right, Left Quality: Pain, Spasm, Similar to prior episodes Associated symptoms: No: Fever, Weakness, Numbness, Incontinent of urine, Unable to urinate, Hematuria, Incontinent of stool Improves with: Rest Worsened by: Movement Contributing factors: Other (states slipped a few days ago and hurt her back. has chronic back issues, but normally not on meidcations at home. States took an old flexeril without relief). 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 Musculoskeletal: Chronic back pain Derm: None - Past Surgical History Past Surgical History: Yes /MEDICAL PRACTICE ADMINISTRATOR: section, Tubal ligation - Present Medications Home Medications: Ambulatory Orders Medication Instructions Recorded Confirmed Estradiol/Norethindrone Acet 1 each PO DAILY 02/07/22 09/08/22 [Amabelz 0.5 mg-0.1 mg Tablet] Pnv No.95/Ferrous Fum/Folic AC 1 tab PO DAILY 02/07/22 09/08/22 [ Tablet] Oxycodone HCl/Acetaminophen 1 - 2 each PO Q6H PRN #14 tablet 06/14/22 09/08/22 [Percocet 5-325 mg Tablet] Naproxen 500 mg PO BID #20 tab 07/22/22 09/08/22 Acyclovir 400 mg PO 5XD 09/08/22 09/08/22 Cyclobenzaprine [Flexeril] 10 mg PO QPM 09/08/22 09/08/22 Oxymetazoline HCl [Afrin] 15 ml NS Q4HR #1 each 09/08/22 Pseudoephedrine HCl [Sudafed 240 mg PO DAILY #10 tab 09/08/22 24-Hour] Oxycodone HCl/Acetaminophen 1 - 2 each PO Q6H PRN #14 tablet 10/27/23 [Percocet 5-325 mg Tablet] MDD 6 tabs methocarbamoL [Robaxin] 500 mg PO Q6H PRN #20 tablet 10/27/23 methylPREDNISolone [Medrol] 4 mg PO DAILY #1 tab 10/27/23 - Allergies Allergies/Adverse Reactions: Allergies Allergy/AdvReac Type Severity Reaction Status Date / Time codeine Allergy Hives Verified 10/27/23 11:39 hydrocodone Allergy Unknown Verified 10/27/23 11:39 - Social History Does the pt smoke?: No Smoking Status: Never smoker Does the pt drink ETOH?: Yes Does the pt have substance abuse?: No - Immunizations Immunizations are current?: No Immunizations: TDAP >10years/unknown, Other immun current - POLST Patient has POLST: No PD ED PE NORMAL - Vitals Vital signs reviewed: Yes - General General: Alert and oriented X 3, No acute distress - HEENT HEENT: Moist mucous membranes - Neck Neck: Supple, no meningeal sign - Cardiac Cardiac: RRR, Strong equal pulses - Respiratory Respiratory: No respiratory distress, Clear bilaterally - Abdomen Abdomen: Soft, Non tender, Non distended - Back Back: No spinal TTP, Other (No midline tenderness to palpation or percussion. No step-off or deformity. Has paraspinal tenderness bilateral lower lumbar. 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 Normal great toe extension bilaterally. no saddle anesthesia) - Psych Psych: Normal mood, Normal affect Results - Vitals Vitals: Vital Signs - 24 hr 10/27/23 11:39 Temperature 36.8 C Heart Rate 100 Respiratory 18 Rate Blood Pressure 104/74 O2 Saturation 100 Oxygen O2 Source Room air PD Medical Decision Making - ED course Complexity details: reviewed old records, considered differential (Normal bilateral lower extremity patellar and ankle jerk reflexes. Normal great toe extension bilaterally. no saddle anesthesia), d/w patient ED course: 48-year-old female with acute on chronic low back pain. Appears to have sciatica as well. Will place on pain medications, muscle relaxants and steroids for home. Ambulating well. Will have her follow-up with her PCP for further care. No evidence of cauda equina, epidural abscess. No indication for emergent imaging. No focal neurological deficits. Does not use IV drugs. P atient counseled regarding signs and symptoms for which I believe and urgent re- evaluation would be necessary. Patient with good understanding of and agreement to plan and is comfortable going home at this time This document was made in part using voice recognition software. While efforts are made to proofread this document, sound alike and grammatical errors may occur. Departure - Departure Disposition: Home, Self Care Clinical Impression: Low back pain Qualifiers: Chronicity: acute Back pain laterality: bilateral Sciatica presence: with sciatica Sciatica laterality: bilateral sciatica Qualified Code(s): M54.42 - Lumbago with sciatica, left side Condition: Good Instructions: ED Sprain Strain Lumbar, ED Sciatica Follow-Up: your,doctor in 1 week [Other] Prescriptions: methylPREDNISolone [Medrol] 4 mg PO DAILY #1 tab Oxycodone HCl/Acetaminophen [Percocet 5-325 mg Tablet] 1 - 2 each PO Q6H PRN #14 tablet MDD 6 tabs PRN Reason: pain methocarbamoL [Robaxin] 500 mg PO Q6H PRN #20 tablet PRN Reason: muscle spasm Comments: Your prescriptions were sent to [facility] in [place]. You can use the medications as prescribed. Continue to gently stretch her back at home. Please return if you worsen. Forms: PCP List, Activity restrictions Discharge Date/Time: 10/27/23 12:49
== END 2023-10-27 12:49 | disposition home or self-care (01) ==
LOC: ED 11:32
DX: M54.50 Low back pain, unspecified (principal)
CPT/HCPCS: 99282; 99283; A9270; J7512

== ENCOUNTER 2023-11-16 08:05 | Emergency (ER) | payer MEDICAID ==
--- NOTE | 2023-11-16 09:38 | ED Physician Documentation ---
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: section, Tubal ligation - Present Medications Home Medications: Ambulatory Orders Medication Instructions Recorded Confirmed Estradiol/Norethindrone Acet 1 each PO DAILY 02/07/22 11/16/23 [Amabelz 0.5 mg-0.1 mg Tablet] Pnv No.95/Ferrous Fum/Folic AC 1 tab PO DAILY 02/07/22 11/16/23 [ Tablet] Naproxen 500 mg PO BID #20 tab 07/22/22 11/16/23 Oxymetazoline HCl [Afrin] 15 ml NS Q4HR #1 each 09/08/22 11/16/23 Pseudoephedrine HCl [Sudafed 240 mg PO DAILY #10 tab 09/08/22 11/16/23 24-Hour] - Allergies Allergies/Adverse Reactions: Allergies Allergy/AdvReac Type Severity Reaction Status Date / Time codeine Allergy Hives Verified 11/16/23 08:30 hydrocodone Allergy Unknown Verified 11/16/23 08:30 - Social History Does the pt smoke?: No Smoking Status: Never smoker Does the pt drink ETOH?: Yes Does the pt have substance abuse?: No - Immunizations Immunizations are current?: No Immunizations: TDAP >10years/unknown, Other immun current - POLST Patient has POLST: No Results - Vitals Vitals: Vital Signs - 24 hr 11/16/23 08:27 Temperature 36.1 C L Heart Rate 91 Respiratory 20 Rate Blood Pressure 98/62 O2 Saturation 99 Oxygen O2 Source Room air
[2023-11-16] MEDS: NAPROXEN 250 MG TABLET PO STA (10:09)
[2023-11-16] MEDS: oxyCODONE 5 MG TABLET PO STA (10:09)
[2023-11-16] MEDS: dexAMETHasone 4 MG TABLET PO STA (10:09)
[2023-11-16] MEDS: tiZANidine 4 MG TABLET PO STA (10:09)
[2023-11-16 11:05] VITALS: BP 119/73; O2SAT 96
== END 2023-11-16 11:01 | disposition home or self-care (01) ==
LOC: ED 08:05
DX: M54.9 Dorsalgia, unspecified (principal)
CPT/HCPCS: 99282; 99283; A9270; J8540

== ENCOUNTER 2023-12-24 15:11 | Outpatient (CLI) | payer MEDICAID ==
--- NOTE | 2023-12-25 09:09 | Mammography Report ---
BILATERAL DIGITAL SCREENING MAMMOGRAM 3D/2D: 12/24/2023 CLINICAL: Baseline exam. Routine screening. No prior exams were available for comparison. There are scattered areas of fibroglandular density in both breasts (category b / 25%-50% glandular t issue). There is an asymmetry in the right breast middle depth lateral region seen on the craniocaudal view o nly. No other significant masses, calcifications, or other findings are seen in either breast. IMPRESSION: INCOMPLETE: NEEDS ADDITIONAL IMAGING EVALUATION The asymmetry in the right breast is indeterminate. Additional views with possible ultrasound are re commended. Based on the Tyrer Cuzick model (a risk assessment model) the patient's lifetime risk is 9.2% and her 10 year risk is 1.8%. According to the ACR, ACS, and NCCN guidelines, an annual breast MRI exam salazar g with mammogram is recommended if the patient's lifetime risk is 20% or greater. This exam was interpreted at Station ID: [id number]. NOTE: For mammograms, a report in lay terms will be sent to the patient. Approximately 15% of breast malignancies will not be visualized mammographically. In the management of a palpable breast mass, a negative mammogram must not discourage biopsy of a clinically suspicious lesion. Electronically Signed By: Yeison mcleod/shazia:12/25/2023 07:59:03 ACR BI-RADS Category 0: Incomplete 3340F PARENCHYMAL PATTERN: (A) - The breast(s) demonstrate(s) scattered fibroglandular densities. BI-RADS CATEGORY: (0) - 0 Mammo and [place] [id number] Immediate follow-up LATERALITY: (B)
== END 2023-12-24 15:12 | disposition home or self-care (01) ==
LOC: DI 15:11
PROVIDERS: ATTEND Nurse Practitioner
DX: Z12.31 Encounter for screening mammogram for malignant neoplasm of breast (principal); R92.8 Other abnormal and inconclusive findings on diagnostic imaging of breast; R92.323 Mammographic fibroglandular density, bilateral breasts

== ENCOUNTER 2024-01-26 10:41 | Outpatient (CLI) | payer MEDICAID ==
--- NOTE | 2024-01-27 08:43 | Ultrasound Report ---
LIMITED ULTRASOUND OF RIGHT BREAST: 01/26/2024 CLINICAL: Patient returns today to evaluate a focal asymmetry in the right breast. Comparison is made to exams dated: 01/26/2024 mammogram and 12/24/2023 mammogram - [facility]. Color flow ultrasound of the right breast 10 o'clock region was performed. Barajas scale images of the real-time examination were reviewed. No significant abnormalities were seen sonographically in the right breast. Specifically, no finding to correspond to the patient's screening mammographic abnormality. IMPRESSION: PROBABLY BENIGN No sonographic correlate to the screening mammogram finding. A follow-up mammogram in 6 months is rec ommended to demonstrate stability. Findings and recommendations were conveyed to the patient at time of exam. This exam was interpreted at Station ID: [id number]. Electronically Signed By: Damaris sarkar/:01/26/2024 12:24:07 Ultrasound BI-RADS: 3 Probably benign BI-RADS CATEGORY: (3) - 3 Mammo and [place] [id number] 6 month follow-up LATERALITY: (R)
--- NOTE | 2024-01-27 08:43 | Mammography Report ---
UNILATERAL RIGHT DIGITAL DIAGNOSTIC MAMMOGRAM 3D/2D WITH SPOT COMPRESSION: 01/26/2024 CLINICAL: Patient returns today to evaluate an asymmetry in the right breast. Comparison is made to exam dated: 12/24/2023 mammogram - [facility]. There are scattered areas of fibroglandular density in the right breast (category b / 25%-50% glandul ar tissue). There is a 6 mm round equal density focal asymmetry with an obscured margin in the right breast at 10 o'clock middle depth. This is seen in additional views. No other significant masses or calcifications are seen in the breast. IMPRESSION: INCOMPLETE: NEEDS ADDITIONAL IMAGING EVALUATION The 6 mm round equal density focal asymmetry in the right breast persists with additional views but r emains indeterminate. An ultrasound is recommended. This was performed immediately following this exam. Based on the Tyrer Cuzick model (a risk assessment model) the patient's lifetime risk is 9.2% and her 10 year risk is 1.8%. According to the ACR, ACS, and NCCN guidelines, an annual breast MRI exam salazar g with mammogram is recommended if the patient's lifetime risk is 20% or greater. This exam was interpreted at Station ID: [id number]. NOTE: For mammograms, a report in lay terms will be sent to the patient. Approximately 15% of breast malignancies will not be visualized mammographically. In the management of a palpable breast mass, a negative mammogram must not discourage biopsy of a clinically suspicious lesion. Electronically Signed By: Damaris sarkar/:01/26/2024 11:23:16 ACR BI-RADS Category 0: Incomplete 3340F PARENCHYMAL PATTERN: (A) - The breast(s) demonstrate(s) scattered fibroglandular densities. BI-RADS CATEGORY: (0) - 0 Ultrasound [id number] Immediate follow-up LATERALITY: (B)
== END 2024-01-26 10:42 | disposition home or self-care (01) ==
LOC: DI 10:41
PROVIDERS: ATTEND Nurse Practitioner
DX: R92.8 Other abnormal and inconclusive findings on diagnostic imaging of breast (principal); R92.321 Mammographic fibroglandular density, right breast

== ENCOUNTER 2024-04-11 11:13 | Emergency (ER) | payer MEDICAID ==
[2024-04-11 11:20] VITALS: BP 119/76; O2SAT 100
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
[2024-04-11] MEDS: oxyCODONE 5 MG TABLET PO STA (11:52)
[2024-04-11] MEDS: TETANUS/DIPHTHERIA/PERTUSSIS 0.5 ML SYRINGE IM ONE (11:52)
== END 2024-04-11 11:57 | disposition home or self-care (01) ==
LOC: ED 11:13
DX: T22.212A Burn of second degree of left forearm, initial encounter (principal); T31.0 Burns involving less than 10% of body surface; X08.8XXA Exposure to other specified smoke, fire and flames, initial encounter; Z23 Encounter for immunization
CPT/HCPCS: 16020; 90471; 90715; 99283; A9270